=== PATIENT | male | born 1970 | race Caucasian/White ===

== ENCOUNTER 2016-12-05 00:21 | Emergency (ER) | payer BC, OTHER ==
[~2016-12-05] VITALS: Ht 172.7 cm; Wt 74.4 kg
--- NOTE | 2016-12-05 01:04 | NUR ---
PT MOVED FROM A LYING POSITION TO A SITTING POSITION AND PT STATED THAT THE PAIN CAME BACK. PT PUT HIS HAND ON HIS STERNUM
--- NOTE | 2016-12-05 01:06 | NUR ---
DR. WICK IS AT THE BEDSIDE EVALUATING THE PT.
[2016-12-05] MEDS ORDERED: IV SET PRIMARY 1 EA INFUS.SET MC ONE (01:23)
[2016-12-05] MEDS ORDERED: ASPIRIN 81 MG TAB.CHEW ONE (01:23)
[2016-12-05] MEDS ORDERED: IV NS 0.9% 1,000 ML ONE (01:23)
[2016-12-05] MEDS ORDERED: IV NS 0.9% 1,000 ML BAG IV ONE (01:30)
[2016-12-05] MEDS ORDERED: ASPIRIN 81 MG TAB.CHEW PO ONE (01:30)
[2016-12-05 01:33] LABS: BASOPHILS # (AUTO) 0.1 /CMM (0.0-0.2); BASOPHILS % (AUTO) 0.6 % (0.0-2.0); EOSINOPHILS # (AUTO) 0.2 /CMM (0.0-0.7); EOSINOPHILS % (AUTO) 1.8 % (0.0-6.0); HEMATOCRIT 38 % (39-51); HEMOGLOBIN 12.9 g/dL (13.5-17.5); LYMPHOCYTES # (AUTO) 3.6 /CMM (0.8-4.8); LYMPHOCYTES % (AUTO) 31.1 % (20.0-44.0); MEAN CORPUSCULAR HEMOGLOBIN 32 PG (26.0-33.0); MEAN CORPUSCULAR HGB CONC 34 g/dl (31.0-36.0); MEAN CORPUSCULAR VOLUME 95 fL (80-96); MONOCYTES # (AUTO) 0.9 /CMM (0.1-1.30); MONOCYTES % (AUTO) 7.9 % (2.0-12.0); NEUTROPHILS # (AUTO) 6.9 /CMM (1.8-8.9); NEUTROPHILS % (AUTO) 58.6 % (43.0-81.0); PLATELET COUNT (AUTO) 256 /CMM (150-450); RDW COEFFICIENT OF VARIATION 13.4 (11.5-15.0); RED BLOOD CELL COUNT(AUTO) 4.02 MIL/uL (4.5-6.0); WHITE BLOOD COUNT (AUTO) 11.7 K/uL (4.3-11.0)
[2016-12-05 01:35] LABS: CALCIUM, SERUM 8.7 mg/dL (8.5-10.1); CARBON DIOXIDE 30 mmol/L (21-32); CHLORIDE 104 mmol/L (98-107); CREATININE 1.1 mg/dL (0.6-1.3); GFR 72 mL/min (>60); GLUCOSE 101 mg/dL (74-106); POTASSIUM 3.7 mmol/L (3.5-5.1); SODIUM SERUM 142 mmol/L (136-145); UREA NITROGEN, BLOOD 19 mg/dL (7-18)
[2016-12-05 01:39] LABS: INR 0.96 (0.87-1.13); PROTHROMBIN TIME 10.2 SECS (9.5-12.7)
[2016-12-05 01:42] LABS: ALANINE AMINOTRANSFERASE 31 U/L (12-78); ALBUMIN 3.4 g/dL (3.4-5.0); ALKALINE PHOSPHATASE 80 U/L (46-116); ASPARTATE AMINOTRANSFERASE 17 U/L (15-37); BILIRUBIN,TOTAL 0.2 mg/dL (0.2-1.0); TROPONIN I < 0.017 ng/mL (0.00-0.056)
[2016-12-05] MEDS ORDERED: IV NS 0.9% 250 ML IV ONE (01:51)
[2016-12-05] MEDS ORDERED: IOHEXOL-350 100 ML VIAL IV ONE (01:51)
[2016-12-05] MEDS ORDERED: CT SWABBABLE VALVE TRANS SET 1 EA INFUS.SET MC ONE (01:51)
[2016-12-05] MEDS ORDERED: MORPHINE SULFATE INJ 2 MG/ML DISP.SYRIN ONE (03:13)
[2016-12-05] MEDS ORDERED: ONDANSETRON HCL/PF 4 MG/2 ML VIAL ONE (03:13)
[2016-12-05] MEDS ORDERED: MORPHINE SULFATE INJ 4 MG/ML DISP.SYRIN ONE (03:13)
--- NOTE | 2016-12-05 03:23 | NUR ---
PT REC'D MEDICATION FOR PAIN 02/22. PT C/O PAIN IN ABD.
[2016-12-05] MEDS ORDERED: MORPHINE SULFATE INJ 2 MG/ML DISP.SYRIN IV ONE (04:00)
[2016-12-05] MEDS ORDERED: ONDANSETRON HCL/PF 4 MG/2 ML VIAL IV ONE (04:00)
[2016-12-05] MEDS ORDERED: HYDROMORPHONE 1 MG/1 ML DISP.SYRIN ONE (04:03)
--- NOTE | 2016-12-05 04:15 | NUR ---
PT REC'D PAIN MEDICATION PRIOR TO LEAVING PER DR. WICK. IV removed. Catheter intact and site benign. Pressure and 4x4 applied to site. No bleeding noted. Patient discharged to home in stable condition. Written and verbal after care instructions given. Patient verbalizes understanding of instruction. PT'S IS DRIVING PT HOME. VSS
[2016-12-05 04:28] VITALS: BP 127/68
[2016-12-05] MEDS ORDERED: HYDROMORPHONE 1 MG/1 ML DISP.SYRIN IV ONE (04:30)
== END 2016-12-05 04:13 | disposition home or self-care (01) ==
LOC: ER 00:23
DX: R07.89 Other chest pain (principal); K85.90 Acute pancreatitis without necrosis or infection, unspecified; F17.200 Nicotine dependence, unspecified, uncomplicated; Z79.82 Long term (current) use of aspirin; Z87.442 Personal history of urinary calculi; Z98.890 Other specified postprocedural states
CPT/HCPCS: 36415; 71010; 71275; 80048; 80076; 83690; 84484; 85025; 85730; 93005; 96361; 96374; 96375; 99285; A4606; J1170; J2270 ×2; J2405; J7030; J7050; Q9967; Z7610

== ENCOUNTER → 2018-04-22 | Emergency (ER) | payer BC ==
[~2018-04-22] VITALS: Ht 170.2 cm; Wt 76.7 kg
[~2018-04-22] MED LIST: HYDROMORPHONE 1 MG/1 ML DISP.SYRIN ONE; HYDROMORPHONE INJ 2 MG/ML DISP.SYRIN IV ONE; IV NS 0.9% 1,000 ML BAG IV ONE; ONDANSETRON HCL/PF 4 MG/2 ML VIAL IVP ONE; ONDANSETRON HCL/PF 4 MG/2 ML VIAL ONE
--- NOTE | 2018-04-22 15:45 | NUR ---
BIB SELF, PATIENT COMPLAINT OF CHEST PAIN, ON ROOM AIR, AND TOLERATED WELL. ALERT AND ORIENTED X 4, VERBALLY RESPONSIVE. KEPT COMFORTABLE. WILL CONTINUE TO MONITOR ACCORDINGLY.
--- NOTE | 2018-04-22 15:50 | NUR ---
DR. SANCHEZ AT BEDSIDE FOR EVAL.
[2018-04-22 16:08] LABS: BASOPHILS # (AUTO) 0.1 /CMM (0.0-0.2); BASOPHILS % (AUTO) 0.8 % (0.0-2.0); EOSINOPHILS % (AUTO) 1.6 % (0.0-6.0); HEMATOCRIT 38 % (39-51); HEMOGLOBIN 12.9 g/dL (13.5-17.5); LYMPHOCYTES # (AUTO) 1.8 /CMM (0.8-4.8); LYMPHOCYTES % (AUTO) 19.5 % (20.0-44.0); MEAN CORPUSCULAR HGB CONC 34 g/dl (31.0-36.0); MEAN CORPUSCULAR VOLUME 97 fL (80-96); MONOCYTES # (AUTO) 0.7 /CMM (0.1-1.30); MONOCYTES % (AUTO) 7.7 % (2.0-12.0); NEUTROPHILS # (AUTO) 6.6 /CMM (1.8-8.9); NEUTROPHILS % (AUTO) 70.4 % (43.0-81.0); PLATELET COUNT (AUTO) 280 /CMM (150-450); RDW COEFFICIENT OF VARIATION 12.6 (11.5-15.0); RED BLOOD CELL COUNT(AUTO) 3.93 MIL/uL (4.5-6.0); WHITE BLOOD COUNT (AUTO) 9.4 K/uL (4.3-11.0)
[2018-04-22 16:18] LABS: CALCIUM, SERUM 8.9 mg/dL (8.5-10.1); CARBON DIOXIDE 33 mmol/L (21-32); CHLORIDE 105 mmol/L (98-107); CREATININE 1.2 mg/dL (0.6-1.3); GLUCOSE 98 mg/dL (74-106); POTASSIUM 3.9 mmol/L (3.5-5.1); SODIUM SERUM 142 mmol/L (136-145); UREA NITROGEN, BLOOD 13 mg/dL (7-18)
[2018-04-22 16:22] LABS: INR 0.97 (0.85-1.15)
[2018-04-22 16:26] LABS: TROPONIN I < 0.017 ng/mL (0.00-0.056)
[2018-04-22 17:21] VITALS: BP 130/80
== END | disposition home or self-care (01) ==
LOC: ER 16:04
DX: M79.601 Pain in right arm (principal); G54.0 Brachial plexus disorders; F17.200 Nicotine dependence, unspecified, uncomplicated; Z87.442 Personal history of urinary calculi; Z85.528 Personal history of other malignant neoplasm of kidney
CPT/HCPCS: 36415; 71045; 80048; 84484; 85025; 85730; 93005; 96374; 96375; 99285; A4606; J1170; J2405; Z7610

== ENCOUNTER 2018-11-14 02:15 | Emergency (ER) | payer BC, MEDICAID ==
[~2018-11-14] VITALS: Ht 170.2 cm; Wt 70.8 kg
--- NOTE | 2018-11-14 02:40 | NUR ---
PT BIBSELF C/C ABD PAIN, LT FLANK PAIN, +N/-V, DYSURIA, -HEMATURIA. NAD NOTED. PT RESP EVEN AND UNLABORED. PT ON MONITOR IN BED 9. WILL CONTINUE TO MONITOR.
--- NOTE | 2018-11-14 02:50 | NUR ---
URINE COLLECTED AND SENT TO LAB
--- NOTE | 2018-11-14 03:16 | NUR ---
BLOOD DRAWN AND GIVEN TO LAB
[2018-11-14] MEDS ORDERED: MORPHINE SULFATE INJ 4 MG/ML DISP.SYRIN ONE ×2 (03:17→04:39)
[2018-11-14 03:24] LABS: BASOPHILS # (AUTO) 0.1 /CMM (0.0-0.2); BASOPHILS % (AUTO) 0.9 % (0.0-2.0); EOSINOPHILS % (AUTO) 1.1 % (0.0-6.0); HEMATOCRIT 38 % (39-51); HEMOGLOBIN 12.8 g/dL (13.5-17.5); LYMPHOCYTES # (AUTO) 2.7 /CMM (0.8-4.8); LYMPHOCYTES % (AUTO) 20.9 % (20.0-44.0); MEAN CORPUSCULAR HGB CONC 34 g/dl (31.0-36.0); MEAN CORPUSCULAR VOLUME 96 fL (80-96); MONOCYTES % (AUTO) 7.8 % (2.0-12.0); NEUTROPHILS # (AUTO) 8.8 /CMM (1.8-8.9); NEUTROPHILS % (AUTO) 69.3 % (43.0-81.0); PLATELET COUNT (AUTO) 237 /CMM (150-450); RED BLOOD CELL COUNT(AUTO) 3.93 MIL/uL (4.5-6.0); WHITE BLOOD COUNT (AUTO) 12.8 K/uL (4.3-11.0)
[2018-11-14] MEDS: MORPHINE SULFATE INJ 2 MG/ML DISP.SYRIN IV ONE ×2 (03:25→04:41)
[2018-11-14] MEDS: IV NS 0.9% 1,000 ML BAG IV ONE (03:25)
[2018-11-14 03:26] VITALS: BP 100/71
[2018-11-14 03:32] LABS: APPEARANCE,URINE CLEAR (CLEAR); BILIRUBIN,URINE NEGATIVE (NEGATIVE); BLOOD, URINE 2+ Ery/uL (NEGATIVE); COLOR,URINE YELLOW (YELLOW); KETONES,URINE NEGATIVE (NEGATIVE); LEUKOCYTE ESTERASE ,URINE NEGATIVE (NEGATIVE); NITRITE, URINE NEGATIVE (NEGATIVE); PH,URINE 5.5 (5.0-8.0); PROTEIN,URINE NEGATIVE (NEGATIVE); UGLUCOSE NEGATIVE (NEGATIVE); UROBILINOGEN,URINE 0.2 EU/dL (0.2)
[2018-11-14 03:32] LABS: CALCIUM, SERUM 8.8 mg/dL (8.5-10.1); CREATININE 1.1 mg/dL (0.6-1.3); POTASSIUM 4.1 mmol/L (3.5-5.1)
[2018-11-14 03:37] LABS: ALBUMIN 3.5 g/dL (3.4-5.0); BILIRUBIN,TOTAL 0.2 mg/dL (0.2-1.0); TOTAL PROTEIN, SERUM 7.4 g/dL (6.4-8.2)
[2018-11-14 03:42] LABS: BACTERIA,URINE None seen /HPF (None Seen); RBC,URINE 21-50 /HPF (0-2); SQUAMOUS EPITHELIAL CELL,UR Few /HPF (None Seen)
[2018-11-14 03:43] LABS: CALCIUM OXALATE CRYSTALS,UR Few /HPF (None Seen); MUCUS,URINE Moderate /LPF (None Seen)
--- NOTE | 2018-11-14 05:02 | NUR ---
IV removed. Catheter intact and site benign. Pressure and 4x4 applied to site. No bleeding noted.Patient discharged to home in stable condition. Written and verbal after care instructions given. Patient verbalizes understanding of instruction. PT AMBULATORY WITH STEADY GAIT.
== END 2018-11-14 05:04 | disposition home or self-care (01) ==
LOC: ER 02:17
DX: R10.9 Unspecified abdominal pain (principal); F17.200 Nicotine dependence, unspecified, uncomplicated; R42 Dizziness and giddiness; Z85.79 Personal history of other malignant neoplasms of lymphoid, hematopoietic and related tissues; Z87.442 Personal history of urinary calculi; Z90.5 Acquired absence of kidney; Z98.890 Other specified postprocedural states
CPT/HCPCS: 36415; 74176; 80048; 80076; 81001; 83690; 85025; 87086; 96361; 96374; 96376; 99284; J2270 ×2; J7030; 81000-TC

== ENCOUNTER 2019-01-16 11:56 | Emergency (ER) | payer BC, MEDICAID ==
[~2019-01-16] VITALS: Ht 170.2 cm; Wt 72.6 kg
--- NOTE | 2019-01-16 12:05 | NUR ---
CAME IN FOR STOMACH PAIN X 3 DAYS; HX OF CA KIDNEY & SPINE. TO ER BED 11, HOOKED TO MONITOR, CHANGED TO GOWN, PROVIDED W WARM BLANKET, AWAITING MD RUBIO
--- NOTE | 2019-01-16 12:29 | NUR ---
DR ADAIR AT BEDSIDE
[2019-01-16] MEDS ORDERED: LIDOCAINE VISCOUS 2% UD 15 ML UDC ONE (12:43)
[2019-01-16] MEDS ORDERED: MAG HYDROX/AL HYDROX/SIMETH 30 ML UDC ONE (12:43)
[2019-01-16] MEDS ORDERED: FAMOTIDINE/PF INJ 20 MG/2 ML VIAL IV ONE ×2 (12:43→13:00)
[2019-01-16] MEDS ORDERED: ONDANSETRON HCL/PF 4 MG/2 ML VIAL ONE ×2 (12:43→14:00)
[2019-01-16 12:44] LABS: BASOPHILS # (AUTO) 0.1 /CMM (0.0-0.2); BASOPHILS % (AUTO) 0.8 % (0.0-2.0); EOSINOPHILS % (AUTO) 4.2 % (0.0-6.0); HEMATOCRIT 39 % (39-51); HEMOGLOBIN 13.1 g/dL (13.5-17.5); LYMPHOCYTES # (AUTO) 2.4 /CMM (0.8-4.8); LYMPHOCYTES % (AUTO) 31.1 % (20.0-44.0); MEAN CORPUSCULAR HGB CONC 33 g/dl (31.0-36.0); MEAN CORPUSCULAR VOLUME 98 fL (80-96); MONOCYTES # (AUTO) 0.6 /CMM (0.1-1.30); MONOCYTES % (AUTO) 8.5 % (2.0-12.0); NEUTROPHILS # (AUTO) 4.2 /CMM (1.8-8.9); NEUTROPHILS % (AUTO) 55.4 % (43.0-81.0); PLATELET COUNT (AUTO) 253 /CMM (150-450); RED BLOOD CELL COUNT(AUTO) 4.01 MIL/uL (4.5-6.0); WHITE BLOOD COUNT (AUTO) 7.6 K/uL (4.3-11.0)
[2019-01-16 12:45] LABS: APPEARANCE,URINE Clear (CLEAR); BILIRUBIN,URINE Negative (NEGATIVE); BLOOD, URINE Moderate Ery/uL (NEGATIVE); COLOR,URINE Yellow (YELLOW); KETONES,URINE Negative (NEGATIVE); LEUKOCYTE ESTERASE ,URINE Negative (NEGATIVE); NITRITE, URINE Negative (NEGATIVE); PROTEIN,URINE Negative (NEGATIVE); UGLUCOSE Negative (NEGATIVE); UROBILINOGEN,URINE 0.2 EU/dL (0.2)
[2019-01-16 12:50] LABS: BACTERIA,URINE Rare /HPF (None Seen); SQUAMOUS EPITHELIAL CELL,UR Rare /HPF (None Seen)
[2019-01-16 12:51] LABS: CALCIUM, SERUM 8.8 mg/dL (8.5-10.1); CREATININE 1.1 mg/dL (0.6-1.3); POTASSIUM 4.3 mmol/L (3.5-5.1)
[2019-01-16] MEDS ORDERED: IV NS 0.9% 250 ML IV ONE (12:52)
[2019-01-16] MEDS ORDERED: IOHEXOL-300 100 ML VIAL IV ONE (12:52)
[2019-01-16] MEDS ORDERED: CT SWABBABLE VALVE TRANS SET 1 EA INFUS.SET MC ONE (12:52)
[2019-01-16 12:57] LABS: ALBUMIN 3.3 g/dL (3.4-5.0); BILIRUBIN,DIRECT 0.1 mg/dL (0.0-0.2); BILIRUBIN,TOTAL 0.4 mg/dL (0.2-1.0); TOTAL PROTEIN, SERUM 7.2 g/dL (6.4-8.2)
[2019-01-16] MEDS ORDERED: MAG HYDROX/AL HYDROX/SIMETH 30 ML UDC PO ONE (13:00)
[2019-01-16] MEDS ORDERED: ONDANSETRON HCL/PF 4 MG/2 ML VIAL IVP ONE (13:00)
[2019-01-16] MEDS ORDERED: IV NS 0.9% 1,000 ML BAG IV ONE (13:00)
[2019-01-16] MEDS ORDERED: LIDOCAINE VISCOUS 2% UD 15 ML UDC MM ONE (13:00)
[2019-01-16] MEDS ORDERED: MORPHINE SULFATE INJ 4 MG/ML DISP.SYRIN ONE (14:00)
[2019-01-16] MEDS ORDERED: ONDANSETRON HCL/PF - ER 4 MG/2 ML VIAL IV ONE (14:00)
[2019-01-16] MEDS ORDERED: SUCRALFATE 1 G/10 ML UDC ONE (14:00)
[2019-01-16] MEDS ORDERED: MORPHINE SULFATE INJ 2 MG/ML DISP.SYRIN IV ONE (14:00)
[2019-01-16] MEDS ORDERED: SUCRALFATE 1 G/10 ML UDC PO ONE (14:00)
--- NOTE | 2019-01-16 14:35 | NUR ---
IV removed. Catheter intact and site benign. Pressure and 4x4 applied to site. No bleeding noted.Patient discharged to home in stable condition. Written and verbal after care instructions given. Patient verbalizes understanding of instruction.
[2019-01-16 14:44] VITALS: BP 109/54
== END 2019-01-16 14:45 | disposition home or self-care (01) ==
LOC: ER 11:56
DX: R10.12 Left upper quadrant pain (principal); R11.2 Nausea with vomiting, unspecified; F17.200 Nicotine dependence, unspecified, uncomplicated; Z85.79 Personal history of other malignant neoplasms of lymphoid, hematopoietic and related tissues; Z85.528 Personal history of other malignant neoplasm of kidney; Z87.442 Personal history of urinary calculi; Z90.5 Acquired absence of kidney; Z98.890 Other specified postprocedural states
CPT/HCPCS: 36415; 74176; 80048; 80076; 81001; 83690; 85025; 96361; 96374; 96375; 96376; 99284; J2270; J2405 ×3; J3490; J7030; J7050; Q9967; 81000-TC

== ENCOUNTER 2019-04-24 01:06 | Emergency (ER) | payer BC, MEDICAID ==
[~2019-04-24] VITALS: Ht 170.2 cm; Wt 69.9 kg
[2019-04-24 01:31] VITALS: BP 114/88
--- NOTE | 2019-04-24 01:31 | NUR ---
BIBS C/O: CHRONIC R ARM PAIN TO ER BED 2 AWAITING MED EVAL
[2019-04-24] MEDS ORDERED: HYDROMORPHONE INJ 2 MG/ML DISP.SYRIN ONE (01:46)
[2019-04-24] MEDS ORDERED: ONDANSETRON 4 MG TAB.RAPDIS ONE (01:46)
[2019-04-24] MEDS ORDERED: HYDROMORPHONE INJ 2 MG/ML DISP.SYRIN IM ONE (02:00)
[2019-04-24] MEDS ORDERED: ONDANSETRON 4 MG TAB.RAPDIS SL ONE (02:00)
== END 2019-04-24 01:55 | disposition home or self-care (01) ==
LOC: ER 01:06
DX: G89.29 Other chronic pain (principal); M25.511 Pain in right shoulder; F17.200 Nicotine dependence, unspecified, uncomplicated; Z87.442 Personal history of urinary calculi; Z90.5 Acquired absence of kidney; Z98.890 Other specified postprocedural states; Z85.528 Personal history of other malignant neoplasm of kidney; Z85.848 Personal history of malignant neoplasm of other parts of nervous tissue
CPT/HCPCS: 96372; 99283; J1170; Q0162

== ENCOUNTER 2019-05-11 00:01 | Emergency (ER) | payer BC, MEDICAID ==
[~2019-05-11] VITALS: Ht 170.2 cm; Wt 69.9 kg
[2019-05-11 00:06] VITALS: BP 109/76
[2019-05-11] MEDS ORDERED: HYDROMORPHONE INJ 2 MG/ML DISP.SYRIN ONE (00:40)
[2019-05-11] MEDS ORDERED: HYDROMORPHONE INJ 0.5 MG/0.5 ML SYRINGE IM ONE (01:00)
== END 2019-05-11 00:50 | disposition home or self-care (01) ==
LOC: ER 00:04
DX: G89.29 Other chronic pain (principal); M54.2 Cervicalgia; F17.200 Nicotine dependence, unspecified, uncomplicated; Z98.890 Other specified postprocedural states; Z90.5 Acquired absence of kidney; Z85.72 Personal history of non-Hodgkin lymphomas; Z85.53 Personal history of malignant neoplasm of renal pelvis
CPT/HCPCS: 96372; 99283; J1170

== ENCOUNTER 2019-07-19 02:51 | Emergency (ER) | payer BC, MEDICAID ==
[~2019-07-19] VITALS: Ht 170.2 cm; Wt 74.8 kg
--- NOTE | 2019-07-19 03:18 | NUR ---
R SIDED SHARP CHEST PAIN STARTED YESTERDAY RADIATING TO R ARM, -NV, -DIAPHORESIS, -SOB. PT AAOX4, VSS, BREATHING EVEN AND UNLABORED ON ROOM AIR W/ NAD NOTED. PT CONNECTED TO THE BULK RECEIVER AND POX.
[2019-07-19] MEDS ORDERED: ASPIRIN 325 MG TABLET ONE (03:43)
--- NOTE | 2019-07-19 03:45 | NUR ---
DR RHODES AT BEDSIDE
[2019-07-19] MEDS ORDERED: MORPHINE SULFATE INJ 4 MG/ML DISP.SYRIN ONE ×2 (03:59→05:27)
[2019-07-19] MEDS ORDERED: MORPHINE SULFATE INJ 2 MG/ML DISP.SYRIN IV ONE ×2 (04:00→05:30)
[2019-07-19] MEDS ORDERED: ASPIRIN 325 MG TABLET PO ONE (04:00)
--- NOTE | 2019-07-19 04:31 | NUR ---
ULTRASOUND IN POGRESS IN PROGRESS
--- NOTE | 2019-07-19 06:28 | NUR ---
Patient discharged to home in stable condition. Written and verbal after care instructions given. Patient verbalizes understanding of instruction.
[2019-07-19 06:30] VITALS: BP 112/67
== END 2019-07-19 06:30 | disposition home or self-care (01) ==
LOC: ER 02:53
DX: M79.601 Pain in right arm (principal); R07.89 Other chest pain; F17.200 Nicotine dependence, unspecified, uncomplicated; Z87.442 Personal history of urinary calculi; Z98.890 Other specified postprocedural states
CPT/HCPCS: 71045; 73060; 73090; 93971; 96374; 96376; 99284; J2270 ×2

== ENCOUNTER 2020-02-08 00:23 | Emergency (ER) | payer BC, MEDICAID ==
[~2020-02-08] VITALS: Ht 170.2 cm; Wt 77.1 kg
--- NOTE | 2020-02-08 00:30 | NUR ---
PT CAME TO THE ED C/O R BUTTOCK PAIN RADIATING TO RLE. PT STATES HE HAS RENAL CANCER AND TOOK GABAPENTIN AND PERCOCET WITH NO RELIEF AT 1999. PT AAOX4, VSS, RESPIRATIONS EVNE AND UNLABORED ON RA W/ NAD NOTED. PT CONNECTED TO THE MONITOR AND POX
[2020-02-08] MEDS ORDERED: MORPHINE SULFATE INJ 4 MG/ML DISP.SYRIN ONE (00:56)
[2020-02-08] MEDS ORDERED: ONDANSETRON 4 MG TAB.RAPDIS ONE (00:57)
[2020-02-08] MEDS ORDERED: ONDANSETRON 4 MG TAB.RAPDIS SL ONE (01:00)
[2020-02-08] MEDS ORDERED: MORPHINE SULFATE INJ 2 MG/ML DISP.SYRIN IV ONE (01:00)
--- NOTE | 2020-02-08 01:31 | NUR ---
PT GOT VERY UPSET W/ THE TREATMENT PROVIDED. PT DEMANDED TO HAVE AN IV LINE INSERTED. MADE AWARE
--- NOTE | 2020-02-08 01:35 | NUR ---
Patient eloped from facility. ER MD notified.
[2020-02-08 01:39] VITALS: BP 103/71
== END 2020-02-08 01:41 | disposition left against medical advice (07) ==
LOC: ER 00:26
DX: G89.29 Other chronic pain (principal); Z87.442 Personal history of urinary calculi; Z85.528 Personal history of other malignant neoplasm of kidney; Z98.890 Other specified postprocedural states; Z90.5 Acquired absence of kidney
CPT/HCPCS: 96374; 99283; J2270; Q0162

== ENCOUNTER 2020-05-12 13:17 | Inpatient (IN) | payer BC, OTHER ==
[2020-05-12] VITALS (22 sets, daily range): BP systolic 102–122; BP diastolic 42–62
[~2020-05-12] VITALS: Ht 170.2 cm; Wt 59.9 kg
--- NOTE | 2020-05-12 13:54 | NUR ---
received pt in bed awake confused, pt does not remember what hapened stated had a nose bleed episode, poor history provider, sbp low 80s runing ns wide open hr 120s o2 sat ra 88 placed on 4l nc sat 94 rr 17, temp 102.8 moved to isolation room 8, at bedside assessing pt awaiting for orders. Addendum: 05/12/20 at 1610 by BILLY pt is not confused;however, is lethargic pt ao2
[2020-05-12] MEDS ORDERED: MEROPENEM 1,000 MG in IV NS 0.9% 100 ML IV ONE (14:30)
[2020-05-12] MEDS ORDERED: IV NS 0.9% 1,000 ML BAG IV ONE (14:30)
[2020-05-12] MEDS ORDERED: NOREPINEPHRINE 8 MG in IV NS 0.9% 242 ML IV PRN (14:30)
[2020-05-12] MEDS ORDERED: ACETAMINOPHEN 650 MG/SUPP.RECT RC ONE ×2 (14:30→14:58)
[2020-05-12] MEDS ORDERED: VANCOMYCIN 1 GM in IV D5W 250 ML IV ONE (14:30)
[2020-05-12 14:41] LABS: BASOPHILS # (AUTO) 0.1 /CMM (0.0-0.2); BASOPHILS % (AUTO) 1.5 % (0.0-2.0); EOSINOPHILS % (AUTO) 2.2 % (0.0-6.0); LYMPHOCYTES # (AUTO) 1.7 /CMM (0.8-4.8); LYMPHOCYTES % (AUTO) 19.7 % (20.0-44.0); MEAN CORPUSCULAR HGB CONC 33 g/dl (31.0-36.0); MEAN CORPUSCULAR VOLUME 89 fL (80-96); MONOCYTES # (AUTO) 0.2 /CMM (0.1-1.30); MONOCYTES % (AUTO) 2.3 % (2.0-12.0); NEUTROPHILS # (AUTO) 6.6 /CMM (1.8-8.9); NEUTROPHILS % (AUTO) 74.3 % (43.0-81.0); WHITE BLOOD COUNT (AUTO) 8.8 K/uL (4.3-11.0)
[2020-05-12] MEDS ORDERED: SENN-261 PO (14:42)
[2020-05-12] MEDS ORDERED: GABA250S2 PO (14:42)
[2020-05-12] MEDS ORDERED: POLY17PO4 PO (14:42)
[2020-05-12] MEDS ORDERED: MYCO500T5 PO (14:42)
[2020-05-12] MEDS ORDERED: APIX5TAB PO (14:42)
[2020-05-12] MEDS ORDERED: HYDR8TAB2 PO (14:42)
[2020-05-12] MEDS ORDERED: CALC-1143 PO (14:42)
[2020-05-12] MEDS ORDERED: ASCO500T20 PO (14:42)
[2020-05-12] MEDS ORDERED: FENT1PAT6 TP (14:42)
[2020-05-12] MEDS ORDERED: ALPR0.5T8 PO (14:42)
[2020-05-12] MEDS ORDERED: [UNRECOGNIZED DRUG - CODE] IV (14:46)
[2020-05-12 14:49] LABS: CALCIUM, SERUM 9.3 mg/dL (8.5-10.1); CREATININE 1.6 mg/dL (0.6-1.3); POTASSIUM 3.9 mmol/L (3.5-5.1)
[2020-05-12 14:50] LABS: HEMATOCRIT 17 % (39-51); HEMOGLOBIN 5.6 g/dL (13.5-17.5); PLATELET COUNT (AUTO) 42 /CMM (150-450)
[2020-05-12 14:52] LABS: ABG BASE EXCESS -3.4 mmol/L; ABG OXYGEN SATURATION 97.3 % (92.0-98.5); ABG PH 7.399 (7.350-7.450); ABG PO2 105.7 mmHg (75.0-100.0); AaDO2 103.2 mmHg; COHb 1.1 % (0.5-1.5); MetHb 0.4 % (0.0-1.5); O2Hb 95.8 % (94.0-97.0); SITE, ABG Left Radial; VENT MODE, BG 4L NASAL CANULA
[2020-05-12 14:55] LABS: ALBUMIN 1.9 g/dL (3.4-5.0); TOTAL PROTEIN, SERUM 4.9 g/dL (6.4-8.2)
[2020-05-12] MEDS ORDERED: HYDROCORTISONE SOD SUCCINATE 100 MG/2 ML VIAL ONE (14:58)
[2020-05-12] MEDS ORDERED: HYDROCORTISONE SOD SUCCINATE 100 MG/2 ML VIAL IV ONE (15:00)
--- NOTE | 2020-05-12 15:05 | NUR ---
orders received for levophed started at 0.1mcg sbp 80s hr 110s o2 sat 95% 4l nc no distress noted 2 l ns wide open running establised 2nd iv line LAC 18G, pt also have a VALENTINO picc line from home. pt condition stable at this time.
[2020-05-12 15:22] LABS: BILIRUBIN,URINE Negative (NEGATIVE); BLOOD, URINE Small Ery/uL (NEGATIVE); COLOR,URINE Yellow (YELLOW); LEUKOCYTE ESTERASE ,URINE Negative (NEGATIVE); NITRITE, URINE Negative (NEGATIVE); PROTEIN,URINE 30 mg/dl (NEGATIVE); UGLUCOSE Negative (NEGATIVE); UROBILINOGEN,URINE 0.2 EU/dL (0.2)
[2020-05-12 15:32] LABS: BILIRUBIN,TOTAL 0.4 mg/dL (0.2-1.0)
[2020-05-12 15:33] LABS: BILIRUBIN,DIRECT 0.2 mg/dL (0.0-0.2)
[2020-05-12 15:33] LABS: BACTERIA,URINE Rare /HPF (None Seen); RBC,URINE 0-2 /HPF (0-2); SQUAMOUS EPITHELIAL CELL,UR Rare /HPF (None Seen); WBC,URINE 0-2 /HPF (0-3)
--- NOTE | 2020-05-12 15:38 | NUR ---
covid swab test collected and sent to lab
--- NOTE | 2020-05-12 16:08 | NUR ---
pt assigned to room 263
--- NOTE | 2020-05-12 16:09 | NUR ---
2l ns infused sbp 110s improved levo running 0.2 emergency room technician at bedside blood consent obtained awaiting for blood be ready for transfuseion. pt condition stable at this time temp down to 99.9 after cooling measures and tylenol administration
[2020-05-12] MEDS ORDERED: ASPIRIN 81 MG TAB.CHEW ONE (16:59)
[2020-05-12] MEDS ORDERED: ASPIRIN 81 MG TAB.CHEW PO ONE (17:00)
--- NOTE | 2020-05-12 17:10 | NUR ---
call blood bank, still working on blood will call er once available.
--- NOTE | 2020-05-12 17:22 | NUR ---
report given to LEAD SOFTWARE ENGINEER Keeley for cont of care all pt needs meet no distress noted during time, pt condition is serious but stable called blood bank, blood not ready will start in ICU once blood ready. pt transfered to icu 263
--- NOTE | 2020-05-12 18:00 | NUR ---
RN NOTES GOT REPORT FROM [facility] for cont of care
[2020-05-12] MEDS ORDERED: Z GUARD REMEDY 2 OZ OINT TP PRN (18:30)
[2020-05-12] MEDS ORDERED: POLYETHYLENE GLYCOL 3350 17 GM POWD.PACK PO PRN (18:30)
[2020-05-12] MEDS ORDERED: ONDANSETRON HCL/PF 4 MG/2 ML VIAL IVP PRN (18:30)
[2020-05-12] MEDS ORDERED: HYDROMORPHONE INJ 2 MG/ML DISP.SYRIN IV PRN (18:30)
[2020-05-12] MEDS ORDERED: ACETAMINOPHEN 325 MG TABLET PO PRN (18:30)
[2020-05-12] MEDS ORDERED: MEROPENEM 500 MG in IV NS 0.9% 50 ML IV SCH (19:00)
[2020-05-12] MEDS: IV NS 0.9% 1,000 ML IV PRN (19:20)
--- NOTE | 2020-05-12 19:25 | NUR ---
PIPE FITTINGS MOLDER NOTES RECEIVED PT A/OX 2-3 IN BED SLEEPING COMFORTABLY. PATIENT IN NO S/SX OF ACUTE DISTRESS AT THIS TIME. NO SOB NOTED. PATIENT'S BREATHING IS EVEN AND UNLABORED. PATIENT IS ON 4 L OF OXYGEN VIA NC; TOLERATING WELL; 97 O2 SAT AT TIME OF RECEIVED. PATIENT ON TELE MONITORING READING SINUS RHYTHM HR IS @79. PATIENT ON REGULAR DIET. NOTED IV SITE ON R UA PICC LINE AND L AC # 18;PATENT, INTACT AND FLUSHING WELL NO S/S OF INFECTION OR INFILTRATION. WITH IV FLUID RUNNING ORDERED. PATIENT ALSO HAS RUNNING LEVOPHED @0.1MCG/KG/MIN AT THE TIME OF RECEIVED. WITH ORTIZ CATH IN PLACE, WITH MODERATE YELLOW COLORED URINE OUTPUT. SAFETY MEASURES HAVE BEEN PROVIDED AND IMPLEMENTED. PATIENT BED ALARM IS ON. HEAD OF BED ELEVATED. BED IS LOCKED, IN LOWEST POSITION AND SIDE RAILS UP. CALL LIGHT WITHIN REACH OF THE PATIENT. ISOLATION PRECAUTIONS IN PLACE. WILL CONTINUE TO MONITOR AND REASSESS FOR ANY CHANGES AND WILL CARRY OUT ANY ONGOING AND ACTIVE MD ORDER.
--- NOTE | 2020-05-12 19:57 | NUR ---
RN NOTES PT IS RESTING. ALERT AND ORIENTED X3. WAITING FOR BLOOD. NO SOB OR DISTRESS NOTED. PT IS ON O2 ON 4 L. ORTIZ.CATH DRAINING BY GRAVITY. LAC #18 IS RUNNING.NO INFILTRATION OR SIGN OF INFECTION PICC LINE LEVO IS RUNNING O.1 MCG. SAFETY MEASUREMENTS ARE IMPLEMENTED BY PROTOCOL. BED IS IN THE LOWEST POSITION. SIDE RAIL IS UP X2. WILL ENDORSE TO NIGHT NURSE FOR LEVON
[2020-05-12 20:56] LABS: BAND % (MANUAL) 34 % (0.0-5.0); LYMPHOCYTES % (MANUAL) 30 % (16-48); METAMYELOCYTES % 2 % (0-0); MONOCYTES % (MANUAL) 6 % (0-11.0); MYELOCYTES % 2 % (0-0); NEUTROPHILS % (MANUAL) 26 (42-76)
--- NOTE | 2020-05-12 20:58 | NUR ---
SURVEILLANCE SENSOR OPERATOR NOTES STARTED 1ST BAG OF PLATELET ORDERED AND PER PROTOCOL. INITIAL VITAL SIGNS TAKEN; WNL. WILL CONTINUE TO MONITOR FOR ANY BLOOD TRANSFUSION REACTION AND ADDRESS NEEDED PERSONAL INJURY ATTORNEY MADE AWARE. Addendum: 05/12/20 at 2256 by SHELTON JORDAN RN ENDED INFUSION AT 2227, NO TRANSFUSION REACTION NOTED. VITAL SIGNS WNL. GERA LUIS MADE AWARE. WILL CONTINUE TO MONITOR AND REASSESS FOR ANY TRANSFUSION REACTION POST PROCEDURE.
[2020-05-12] MEDS: HYDROCORTISONE SOD SUCCINATE 100 MG/2 ML VIAL IV SCH (21:48)
[2020-05-12] MEDS: MYCOPHENOLATE MOFETIL 250 MG CAPSULE PO SCH (21:49)
[2020-05-12] MEDS: GABAPENTIN 300 MG CAPSULE PO SCH (21:49)
--- NOTE | 2020-05-12 22:00 | NUR ---
RN NOTES NO CHANGE IN PATIENT CONDITION AT THIS TIME PATIENT VITALS STABLE, NO SIGNS OF ACUTE RESPIRATORY DISTRESS. PUBLIC HEALTH ASSISTANT MADE AWARE. WILL CONTINUE TO MONITOR AND REASSESS FOR ANY CHANGES THROUGHOUT THE SHIFT.
--- NOTE | 2020-05-12 22:48 | NUR ---
SCHOOL BUS DISPATCHER NOTES STARTED 2ND BAG OF PLATELET ORDERED AND ADMINISTERED PER PROTOCOL. VITAL SIGNS TAKEN; WNL. WILL CONTINUE TO MONITOR FOR ANY BLOOD TRANSFUSION REACTION AND ADDRESS NEEDED NON LINEAR EDITOR MADE AWARE. Addendum: 05/12/20 at 2347 by SHELTON JORDAN RN ENDED INFUSION AT 2345, NO TRANSFUSION REACTION NOTED. VITAL SIGNS WNL. NON LINEAR EDITOR MADE AWARE. WILL CONTINUE TO MONITOR AND REASSESS FOR ANY TRANSFUSION REACTION POST PROCEDURE.
[2020-05-13] VITALS (105 sets, daily range): BP systolic 74–127; BP diastolic 40–88
[2020-05-13] MEDS: MEROPENEM 1 G in IV NS 0.9% 100 ML IV SCH ×2 (00:22→12:09)
--- NOTE | 2020-05-13 00:35 | NUR ---
MEDICAL RECEPTION SPECIALIST NOTES STARTED 1ST BAG OF PRBC ORDERED AND ADMINISTERED PER PROTOCOL. VITAL SIGNS TAKEN AND RECORDED. WILL CONTINUE TO MONITOR FOR ANY BLOOD TRANSFUSION REACTION AND ADDRESS NEEDED. GERA LUIS MADE AWARE. Addendum: 05/13/20 at 0300 by SHELTON JORDAN RN ENDED INFUSION AT 0259, NO TRANSFUSION REACTION NOTED. VITAL SIGNS WNL. GERA LUIS MADE AWARE. WILL CONTINUE TO MONITOR AND REASSESS FOR ANY TRANSFUSION REACTION POST PROCEDURE.
--- NOTE | 2020-05-13 02:00 | NUR ---
MAKER UP FOLDING NOTES NO CHANGE IN PATIENT CONDITION AT THIS TIME PATIENT VITALS STABLE, NO SIGNS OF ACUTE RESPIRATORY DISTRESS. PRIMARY TEACHER MADE AWARE. WILL CONTINUE TO MONITOR AND REASSESS FOR ANY CHANGES THROUGHOUT THE SHIFT.
--- NOTE | 2020-05-13 03:17 | NUR ---
STRIKE ON MACHINE OPERATOR NOTES STARTED 2ND BAG OF PRBC ORDERED AND ADMINISTERED PER PROTOCOL. VITAL SIGNS TAKEN; WNL. WILL CONTINUE TO MONITOR FOR ANY BLOOD TRANSFUSION REACTION AND ADDRESS NEEDED SUPERVISOR HARVESTING MADE AWARE. Addendum: 05/13/20 at 0522 by SHELTON JORDAN RN ENDED BLOOD TRANSFUSION AT 0519, NO TRANSFUSION REACTION NOTED. VITAL SIGNS WNL. SUPERVISOR HARVESTING MADE AWARE. WILL CONTINUE TO MONITOR AND REASSESS FOR ANY TRANSFUSION REACTION POST PROCEDURE.
[2020-05-13] MEDS ORDERED: VANCOMYCIN 1 GM in IV D5W 250 ML IV SCH (04:00)
--- NOTE | 2020-05-13 04:05 | NUR ---
CELEBRITY MANAGER NOTES PATIENT HAS DUE MEDICATION OF VANCOMYCIN 1GM IN IV D5W @250MLS/HR. ADMINSTRATION WILL BE DELAYED THERE'S AN ONGOING BLOOD TRANSFUSION FOR THE PT. WILL ADMINISTER ONCE BLOOD TRANSFUSION HAS BEEN COMPLETED. ROLLING MILL OPERATOR HELPER MADE AWARE.
[2020-05-13] MEDS: HYDROCORTISONE SOD SUCCINATE 100 MG/2 ML VIAL IV SCH ×3 (04:32→21:46)
[2020-05-13] MEDS: GABAPENTIN 300 MG CAPSULE PO SCH ×3 (04:33→21:46)
--- NOTE | 2020-05-13 07:01 | NUR ---
PSYCHOMETRIC EXAMINER CLOSING NOTES PATIENT REMAINS IN ROOM IN NO SIGNS OF RESPIRATORY DISTRESS. PATIENT SATURATING 100% OF 02. VITAL SIGNS WNL. IV LINE MAINTAINED, INTACT, PATENT AND FLUSHING, NO SITE REDNESS OR INFILTRATION. SAFETY PRECAUTIONS IN PLACE AND COMFORT MEASURES RENDERED. BED IN LOWEST POSITION, CALL LIGHT WITHIN REACH, BREAKS ON, SIDE RAILS UP. ALL NEEDS ATTENDED, MEDICATIONS GIVEN SCHEDULED AND ORDERED ; SHIFT ASSESSMENT/BEDBATH/SKIN CARE DONE. PATIENT KEPT CLEAN AND DRY. WILL ENDORSE TO INCOMING SHIFT FOR LEVON WITH ALL PERTINENT INFO REGARDING PATIENT STATUS.
[2020-05-13 07:10] LABS: BASOPHILS # (AUTO) 0.1 /CMM (0.0-0.2); BASOPHILS % (AUTO) 1.5 % (0.0-2.0); EOSINOPHILS % (AUTO) 0.9 % (0.0-6.0); HEMATOCRIT 23 % (39-51); HEMOGLOBIN 7.5 g/dL (13.5-17.5); LYMPHOCYTES # (AUTO) 0.8 /CMM (0.8-4.8); LYMPHOCYTES % (AUTO) 11.1 % (20.0-44.0); MEAN CORPUSCULAR HGB CONC 33 g/dl (31.0-36.0); MEAN CORPUSCULAR VOLUME 89 fL (80-96); MONOCYTES # (AUTO) 0.2 /CMM (0.1-1.30); MONOCYTES % (AUTO) 2.4 % (2.0-12.0); NEUTROPHILS # (AUTO) 6.2 /CMM (1.8-8.9); NEUTROPHILS % (AUTO) 84.1 % (43.0-81.0); PLATELET COUNT (AUTO) 82 /CMM (150-450); RED BLOOD CELL COUNT(AUTO) 2.54 MIL/uL (4.5-6.0); WHITE BLOOD COUNT (AUTO) 7.3 K/uL (4.3-11.0)
[2020-05-13 07:18] LABS: CALCIUM, SERUM 8.4 mg/dL (8.5-10.1); CREATININE 1.1 mg/dL (0.6-1.3); PHOSPHORUS 5.9 mg/dL (2.5-4.9); POTASSIUM 3.8 mmol/L (3.5-5.1)
--- NOTE | 2020-05-13 08:00 | NUR ---
received pt from charger tester, a/o x4, SR, on 3L 02 sat well, on levo at 0.07mcg, did not want to eat his breakfast, f/c good urine output, v/s stable, c/o pain, Dilaudid 2mg ivp given, pt turns and repositions by himself.
[2020-05-13 08:18] LABS: BAND % (MANUAL) 12 % (0.0-5.0); EOSINOPHILS % (MANUAL) 2 % (0-4); LYMPHOCYTES % (MANUAL) 20 % (16-48); NEUTROPHILS % (MANUAL) 66 (42-76)
[2020-05-13] MEDS: ASCORBIC ACID 500 MG TABLET PO SCH (08:53)
[2020-05-13] MEDS: SENNOSIDES 8.6 MG TABLET PO PRN (08:53)
[2020-05-13] MEDS: CALCIUM CARBONATE (1250) 500 MG TABLET PO SCH ×2 (08:53→16:51)
[2020-05-13] MEDS: MYCOPHENOLATE MOFETIL 250 MG CAPSULE PO SCH ×2 (08:53→16:51)
[2020-05-13] MEDS ORDERED: HYDROMORPHONE INJ 2 MG/ML DISP.SYRIN IV PRN (09:30)
[2020-05-13 09:32] LABS: HEMOGLOBIN 7.5 g/dL (13.5-17.5)
[2020-05-13] MEDS ORDERED: NALOXONE HCL 0.4 MG/ML AMPUL IV PRN (10:00)
[2020-05-13] MEDS: FENTANYL TD PATCH (50 MCG/HR) 50 MCG/HR PATCH.TD72 TD SCH (12:09)
[2020-05-13] MEDS: NOREPINEPHRINE 8 MG in IV NS 0.9% 242 ML IV PRN (12:11)
[2020-05-13] MEDS: IV NS 0.9% 1,000 ML IV PRN (12:57)
[2020-05-13] MEDS: HYDROMORPHONE INJ 2 MG/ML DISP.SYRIN IV PRN ×3 (15:10→21:46)
[2020-05-13] MEDS: VANCOMYCIN 1 GM in IV D5W 250 ML IV SCH ×2 (15:11→22:00)
--- NOTE | 2020-05-13 16:29 | NUR ---
pt resting in the bed, a/o x4, SR, on 4L 02, lungs congested, expectorating bloody sputum, MD is aware, eats very little, good urine output, v/s stable, pain meds give q3hrs, CT scan done, pt turns and repositions by himself.
--- NOTE | 2020-05-13 22:10 | NUR ---
CALLED AFTER HOURS PHARMACY ([facility]) ABOUT ELEVATED TROUGH LEVEL OF 25. SPOKE TO TRISHA AND INSTRUCTED TO HOLD VANCOMYCIN DUE AT 2200 AND THEY WILL F/U IN THE MORNING WITH PHARMACY.
[2020-05-14] VITALS (92 sets, daily range): BP systolic 77–123; BP diastolic 22–83
--- NOTE | 2020-05-14 | NUR ---
PATIENT CONTINUES TO HAVE EXPECTORATING BLOODY SPUTUM THROUGH THE MOUTH AND NOSE. PATIENT STATES THIS IS THE MOST THAT IT HAS HAPPENED. PATIENT GOT A CT OF CHEST AND ABD (05/13/20) BUT SAYS HE HAS NOT SPOKEN TO ANYONE ABOUT THE RESULTS. HE DOES NOT UNDERSTAND WHY HE HAS BLOODY SPUTUM COMING OUT FROM HIS LUNGS. ASSESSED PATIENT AUSCULTATED LUNG SOUNDS: LUNGS ARE DIMINISHED WITH CRACKLES THROUGHOUT LUNGS.
[2020-05-14] MEDS: MEROPENEM 1 G in IV NS 0.9% 100 ML IV SCH ×2 (00:34→12:40)
[2020-05-14] MEDS: HYDROMORPHONE INJ 2 MG/ML DISP.SYRIN IV PRN ×7 (00:44→22:07)
[2020-05-14 00:50] LABS: BASOPHILS # (AUTO) 0.1 /CMM (0.0-0.2); BASOPHILS % (AUTO) 1.3 % (0.0-2.0); EOSINOPHILS % (AUTO) 0.5 % (0.0-6.0); LYMPHOCYTES # (AUTO) 0.6 /CMM (0.8-4.8); LYMPHOCYTES % (AUTO) 9.4 % (20.0-44.0); MEAN CORPUSCULAR HGB CONC 33 g/dl (31.0-36.0); MEAN CORPUSCULAR VOLUME 88 fL (80-96); MONOCYTES # (AUTO) 0.1 /CMM (0.1-1.30); MONOCYTES % (AUTO) 1.6 % (2.0-12.0); NEUTROPHILS # (AUTO) 5.8 /CMM (1.8-8.9); NEUTROPHILS % (AUTO) 87.2 % (43.0-81.0); PLATELET COUNT (AUTO) 54 /CMM (150-450); RED BLOOD CELL COUNT(AUTO) 2.22 MIL/uL (4.5-6.0); WHITE BLOOD COUNT (AUTO) 6.7 K/uL (4.3-11.0)
[2020-05-14 00:55] LABS: HEMATOCRIT 20 % (39-51); HEMOGLOBIN 6.5 g/dL (13.5-17.5)
--- NOTE | 2020-05-14 01:00 | NUR ---
PAGED CHONG ABOUT PATIENT CONSTANTLY HAVING BLOOD SPUTUM WELL A BLOODY NOSE. CHONG ORDERED A CBC STAT. WILL F/U
--- NOTE | 2020-05-14 01:15 | NUR ---
CRITICAL HGB OF 6.5 AND PLT OF 54 WAS REPORTED TO TROY SCHWARZ. ORDERED 1 UNIT OF PRBC.
[2020-05-14 02:16] LABS: BAND % (MANUAL) 26 % (0.0-5.0); LYMPHOCYTES % (MANUAL) 6 % (16-48); METAMYELOCYTES % 4 % (0-0); MONOCYTES % (MANUAL) 2 % (0-11.0); MYELOCYTES % 5 % (0-0); NEUTROPHILS % (MANUAL) 56 (42-76); PROMYELOCYTES % 1 % (0-0)
--- NOTE | 2020-05-14 02:55 | NUR ---
BLOOD TRANSFUSION STARTED. NO SIGNS OF ADVERSE SIDE AFFECTS. VITALS WNL. WILL CONTINUE TO MONITOR.
[2020-05-14] MEDS: GABAPENTIN 300 MG CAPSULE PO SCH ×3 (05:00→21:30)
--- NOTE | 2020-05-14 05:04 | NUR ---
BLOOD TRANSFUSION COMPLETE. NO ADVERSE AFFECTS. VITALS WNL. PATIENT CONTINUES TO COUGH UP RED SPUTUM WITH CLOTS.
[2020-05-14] MEDS: HYDROCORTISONE SOD SUCCINATE 100 MG/2 ML VIAL IV SCH ×3 (05:27→21:30)
[2020-05-14 06:20] LABS: BASOPHILS # (AUTO) 0.1 /CMM (0.0-0.2); BASOPHILS % (AUTO) 2.1 % (0.0-2.0); EOSINOPHILS % (AUTO) 0.8 % (0.0-6.0); HEMATOCRIT 22 % (39-51); HEMOGLOBIN 7.3 g/dL (13.5-17.5); LYMPHOCYTES # (AUTO) 0.7 /CMM (0.8-4.8); MEAN CORPUSCULAR HGB CONC 34 g/dl (31.0-36.0); MEAN CORPUSCULAR VOLUME 88 fL (80-96); MONOCYTES # (AUTO) 0.1 /CMM (0.1-1.30); MONOCYTES % (AUTO) 1.9 % (2.0-12.0); NEUTROPHILS # (AUTO) 5.1 /CMM (1.8-8.9); NEUTROPHILS % (AUTO) 83.2 % (43.0-81.0); RED BLOOD CELL COUNT(AUTO) 2.46 MIL/uL (4.5-6.0); WHITE BLOOD COUNT (AUTO) 6.1 K/uL (4.3-11.0)
[2020-05-14 07:03] LABS: CALCIUM, SERUM 8.3 mg/dL (8.5-10.1); CREATININE 0.8 mg/dL (0.6-1.3); MAGNESIUM 2.2 mg/dL (1.8-2.4); PHOSPHORUS 3.7 mg/dL (2.5-4.9); POTASSIUM 3.8 mmol/L (3.5-5.1)
[2020-05-14 07:09] LABS: IMMUNOGLOBULIN A, SERUM 81 mg/dL (90-386); IMMUNOGLOBULIN G, SERUM 386 mg/dL (603-1613); IMMUNOGLOBULIN M, SERUM 238 mg/dL (20-172)
--- NOTE | 2020-05-14 07:10 | NUR ---
report given to morning shift nurse. RN aware of all of patients needs and aware about bloody sputum.
[2020-05-14 07:11] LABS: D-DIMER 6.3 mg/L(FEU (0.17-0.50)
[2020-05-14 07:14] LABS: PLATELET COUNT (AUTO) 47 /CMM (150-450)
[2020-05-14 07:43] LABS: BAND % (MANUAL) 1 % (0.0-5.0); EOSINOPHILS % (MANUAL) 1 % (0-4); LYMPHOCYTES % (MANUAL) 15 % (16-48); MONOCYTES % (MANUAL) 7 % (0-11.0); NEUTROPHILS % (MANUAL) 76 (42-76)
--- NOTE | 2020-05-14 08:00 | NUR ---
ICU/RN PT IS ON THE BED ,ON 3L N/C SAT O2-91%.ON LEVOPHED DRIP.RIGHT UPPER ARM PICC LINE .IV INFUSING ORDERED.F/C DRAINING WITH YELLOW URINE.PT IS COUGHING BLOOD.MD NOTIFIED.LABS REVIEW.CONTINUE MONITORING.
[2020-05-14 08:29] LABS: HIV SCRN 4G wRFX Non Reactive (Non Reactive)
[2020-05-14] MEDS: CALCIUM CARBONATE (1250) 500 MG TABLET PO SCH ×2 (08:30→16:33)
[2020-05-14] MEDS: MYCOPHENOLATE MOFETIL 250 MG CAPSULE PO SCH ×2 (08:31→16:32)
[2020-05-14] MEDS: ASCORBIC ACID 500 MG TABLET PO SCH (08:31)
[2020-05-14] MEDS: MAGNESIUM HYDROXIDE 30 ML UDC PO PRN (09:10)
[2020-05-14] MEDS: MAG HYDROX/AL HYDROX/SIMETH 30 ML UDC PO PRN (09:10)
[2020-05-14] MEDS: VANCOMYCIN 1 GM in IV D5W 250 ML IV SCH ×2 (09:13→21:36)
[2020-05-14] MEDS: NOREPINEPHRINE 8 MG in IV NS 0.9% 242 ML IV PRN (13:26)
[2020-05-14] MEDS: ALPRAZOLAM 0.5 MG TABLET PO PRN ×2 (13:31→22:15)
[2020-05-14 14:10] LABS: *SPE A/G RATIO 0.8 (0.7-1.7); *SPE ALBUMIN 2.1 g/dL (2.9-4.4); *SPE ALPHA-1-GLOBULIN 0.4 g/dL (0.0-0.4); *SPE ALPHA-2-GLOBULIN 0.8 g/dL (0.4-1.0); *SPE BETA GLOBULIN 0.7 g/dL (0.7-1.3); *SPE GLOBULIN, TOTAL 2.5 g/dL (2.2-3.9); *SPE M-SPIKE Not Observed g/dL (Not Observed); *SPEGAMMA GLOBULIN 0.6 g/dL (0.4-1.8)
--- NOTE | 2020-05-14 15:00 | NUR ---
ICU/SUPPLIER QUALITY ENGINEERING MANAGER AT BED SIDE.PT UNDERSTAND HIS PROGNOSES.CODE STATUS CHANGED TO DNR/DNI. NOTIFIED.
[2020-05-14] MEDS: IV NS 0.9% 1,000 ML IV PRN (16:18)
--- NOTE | 2020-05-14 18:30 | NUR ---
ICU/RN BLOOD TRANSFUSION STARTED ORDERED.PT STILL ON LEVOPHED DRIP.COUGHING OUT A LOT OF BLOOD ,HAS NOSE BLEEDING.REFUSED TO EAT.DUE MEDS ARE GIVEN ORDERED.PAIN MEDS GIVEN EVERY 3 HRS.CONTINUE MONITORING
--- NOTE | 2020-05-14 22:00 | NUR ---
patient is awake and coughing up blood and blood clots. vitals are wnl. patient c/o pain generalized and pain management initiated. will continue to monitor.
--- NOTE | 2020-05-14 22:27 | NUR ---
received patient in no acute distress in bed. patient is a/o x 4 and able to make needs known. patient is currently resting in bed, but when awake is coughing up blood. Currently patient is not coughing. patient is on o2 via nasal cannula at 4 lpm and tolerating well. Patient has romero catheter that is clean dry intact and patent with yellow urine draining. patient not currently c/o any sob, difficulty breathing or pain at this time. patient has right upper arm picc line that is clean dry intact and patent. 1 unit PRBC infusing at this time. no reaction noted. bed in low lock position with rials up x 2. call light within reach and all safety measures ensured and carried out. will continue to monitor.
--- NOTE | 2020-05-14 22:34 | NUR ---
contacted blood bank about platelets and was told that platelets will take a long time to arrive. no exact time given. will continue to wait for arrival of platelets.
--- NOTE | 2020-05-14 23:50 | NUR ---
notified by blood bank that platelets are available for pickup. notified charge nurse that platelets are ready and will go pick them up.
[2020-05-15] VITALS (101 sets, daily range): BP systolic 81–126; BP diastolic 44–78
[2020-05-15] MEDS: MEROPENEM 1 G in IV NS 0.9% 100 ML IV SCH ×3 (00:53→23:20)
[2020-05-15] MEDS: HYDROMORPHONE INJ 2 MG/ML DISP.SYRIN IV PRN ×5 (03:34→23:21)
[2020-05-15 04:40] LABS: BASOPHILS % (AUTO) 0.4 % (0.0-2.0); LYMPHOCYTES # (AUTO) 0.9 /CMM (0.8-4.8); LYMPHOCYTES % (AUTO) 13.7 % (20.0-44.0); MEAN CORPUSCULAR HGB CONC 34 g/dl (31.0-36.0); MEAN CORPUSCULAR VOLUME 89 fL (80-96); MONOCYTES # (AUTO) 0.1 /CMM (0.1-1.30); MONOCYTES % (AUTO) 2.2 % (2.0-12.0); NEUTROPHILS # (AUTO) 5.2 /CMM (1.8-8.9); NEUTROPHILS % (AUTO) 82.7 % (43.0-81.0); PLATELET COUNT (AUTO) 58 /CMM (150-450); RED BLOOD CELL COUNT(AUTO) 2.26 MIL/uL (4.5-6.0); WHITE BLOOD COUNT (AUTO) 6.3 K/uL (4.3-11.0)
[2020-05-15 04:45] LABS: HEMATOCRIT 20 % (39-51); HEMOGLOBIN 6.8 g/dL (13.5-17.5)
--- NOTE | 2020-05-15 04:47 | NUR ---
received critical lab value HGB 6.[address] Cyril flanagan will administer 1 unit of PRBC.
[2020-05-15 04:56] LABS: CREATININE 0.8 mg/dL (0.6-1.3); MAGNESIUM 2.8 mg/dL (1.8-2.4); PHOSPHORUS 3.2 mg/dL (2.5-4.9); POTASSIUM 4.4 mmol/L (3.5-5.1)
[2020-05-15 05:32] LABS: BAND % (MANUAL) 3 % (0.0-5.0); EOSINOPHILS % (MANUAL) 2 % (0-4); LYMPHOCYTES % (MANUAL) 19 % (16-48); MONOCYTES % (MANUAL) 11 % (0-11.0); NEUTROPHILS % (MANUAL) 65 (42-76)
[2020-05-15] MEDS: GABAPENTIN 300 MG CAPSULE PO SCH ×3 (05:52→20:41)
[2020-05-15] MEDS: HYDROCORTISONE SOD SUCCINATE 100 MG/2 ML VIAL IV SCH ×3 (05:52→20:40)
[2020-05-15] MEDS: ALPRAZOLAM 0.5 MG TABLET PO PRN ×2 (06:25→14:29)
--- NOTE | 2020-05-15 07:24 | NUR ---
patient remains in no acute distress in bed. patient did not have any significant change in condition during shift. all needs met, all orders carried out. will endorse care to am RN for continuity of care.
[2020-05-15] MEDS: CALCIUM CARBONATE (1250) 500 MG TABLET PO SCH ×2 (08:30→16:10)
[2020-05-15] MEDS: ASCORBIC ACID 500 MG TABLET PO SCH (08:30)
[2020-05-15] MEDS: MYCOPHENOLATE MOFETIL 250 MG CAPSULE PO SCH ×2 (08:30→16:10)
[2020-05-15] MEDS: VANCOMYCIN 1 GM in IV D5W 250 ML IV SCH ×2 (09:00→20:41)
--- NOTE | 2020-05-15 09:00 | NUR ---
ICU/RN DUE MEDS ARE GIVEN ORDERED.1 UNIT PRBC TRANSFUSED.NO S/S OF BLOOD TRANSFUSION REACTION NOTED.AFEBRILE.NO PAIN REPORTED AT THIS TIME.PT IS ON 5L N/C SAT O2-95%. ON LEVOPHED DRIP AND ON IV FLUIDS.RIGHT UPPER ARM PICC LINE.F/C DRAINING WITH YELLOW URINE.CONTINUE MONITORING.
[2020-05-15] MEDS: IV NS 0.9% 1,000 ML IV PRN (11:00)
[2020-05-15] MEDS: NOREPINEPHRINE 8 MG in IV NS 0.9% 242 ML IV PRN ×2 (12:10→20:39)
--- NOTE | 2020-05-15 19:30 | NUR ---
RN NOTE RECEIVED PATIENT IN BED, AO X4, IN NO S/SX OF ACUTE DISTRESS AT THIS TIME. PATIENT'S BREATHING IS EVEN AND UNLABORED. PATIENT IS ON 5 L OF OXYGEN VIA NC, TOLERATING WELL, SATURATING AT 98%. PATIENT ON BEDSIDE MONITOR READING SR, HR IS 87. NOTED VALENTINO TLC, PATENT AND FLUSHING WELL, WITH NS INFUSING AT 75 ML/HR, AND NOREPINEPHRINE DRIP AT 0.2 MCG/KG/MIN, NO S/S OF INFECTION OR INFILTRATION. ORTIZ CATH CONNECTED TO URINE BAG IN PLACE, DRAINING TO A CLEAR YELLOW URINE. SAFETY MEASURES IMPLEMENTED PER PROTOCOL. ASPIRATION AND FALL PRECAUTIONS OBSERVED. PATIENT BED ALARM IS ON. HEAD OF BED ELEVATED. BED IS LOCKED, IN LOWEST POSITION AND SIDE RAILS UP. CALL LIGHT WITHIN REACH OF PATIENT. WILL CONTINUE TO MONITOR AND REASSESS FOR ANY CHANGES.
[2020-05-15] MEDS ORDERED: NOREPINEPHRINE 8MG/250ML RTU 250 ML IV ONE (20:35)
[2020-05-16] VITALS (71 sets, daily range): BP systolic 89–126; BP diastolic 48–74
[2020-05-16] MEDS: ALPRAZOLAM 0.5 MG TABLET PO PRN ×2 (00:39→07:23)
[2020-05-16] MEDS ORDERED: NOREPINEPHRINE 8MG/250ML RTU 250 ML IV ONE (01:59)
[2020-05-16] MEDS: NOREPINEPHRINE 8 MG in IV NS 0.9% 242 ML IV PRN ×2 (02:04→13:14)
[2020-05-16] MEDS: HYDROMORPHONE INJ 2 MG/ML DISP.SYRIN IV PRN ×5 (04:34→20:18)
[2020-05-16] MEDS: GABAPENTIN 300 MG CAPSULE PO SCH ×3 (04:34→20:19)
[2020-05-16] MEDS: HYDROCORTISONE SOD SUCCINATE 100 MG/2 ML VIAL IV SCH ×3 (04:34→20:19)
[2020-05-16 05:10] LABS: CALCIUM, SERUM 8.8 mg/dL (8.5-10.1); CREATININE 0.8 mg/dL (0.6-1.3); POTASSIUM 3.9 mmol/L (3.5-5.1)
[2020-05-16 05:25] LABS: D-DIMER 3.98 mg/L(FEU (0.17-0.50)
[2020-05-16 05:38] LABS: BASOPHILS % (AUTO) 0.4 % (0.0-2.0); EOSINOPHILS % (AUTO) 0.4 % (0.0-6.0); HEMATOCRIT 22 % (39-51); HEMOGLOBIN 7.4 g/dL (13.5-17.5); LYMPHOCYTES % (AUTO) 13.2 % (20.0-44.0); MEAN CORPUSCULAR HGB CONC 34 g/dl (31.0-36.0); MEAN CORPUSCULAR VOLUME 90 fL (80-96); MONOCYTES # (AUTO) 0.2 /CMM (0.1-1.30); MONOCYTES % (AUTO) 2.9 % (2.0-12.0); NEUTROPHILS # (AUTO) 6.5 /CMM (1.8-8.9); NEUTROPHILS % (AUTO) 83.1 % (43.0-81.0); RED BLOOD CELL COUNT(AUTO) 2.46 MIL/uL (4.5-6.0); WHITE BLOOD COUNT (AUTO) 7.8 K/uL (4.3-11.0)
[2020-05-16] MEDS: IV NS 0.9% 1,000 ML IV PRN ×2 (05:42→21:28)
[2020-05-16 06:13] LABS: LYMPHOCYTES % (MANUAL) 13 % (16-48); MONOCYTES % (MANUAL) 1 % (0-11.0); NEUTROPHILS % (MANUAL) 83 (42-76); PLATELET COUNT (AUTO) 37 /CMM (150-450)
[2020-05-16 06:14] LABS: EOSINOPHILS % (MANUAL) 3 % (0-4)
--- NOTE | 2020-05-16 06:35 | NUR ---
RN NOTE CBC RESULTED, HGB 7.4. WILL TRANSFUSE [address] ETIENNE'S TRANSFUSION PARAMETERS: TRANSFUSE 1 UNIT PRBC IF HGB <8. ELECTRICIAN SOUND MADE AWARE. Addendum: 05/16/20 at 0641 by KANE HALEY RN HCT LEVEL 22
--- NOTE | 2020-05-16 07:30 | NUR ---
ICU/RN PT IS ON 5L N/C SAT O2-98%. AFEBRILE .C/O OF PAIN 8-03/25.DILAUDID 4 MG IV GIVEN ORDERED.ON LEVOPHED DRIP.RIGHT UPPER ARM PICC LINE.IV INFUSING ORDERED. F/C DRAINING WITH YELLOW URINE.SKIN INTACT. REPOSITION FOR COMFORT.
--- NOTE | 2020-05-16 07:31 | NUR ---
RN NOTE PATIENT REMAINS IN ROOM RESTING COMFORTABLY. NO SIGNS OF RESPIRATORY DISTRESS AT 5LPM OXYGEN, TOLERATING WELL SATURATING @ >98% SP02. IV FLUID OF NS INFUSING AT 75 ML/HR, AND NOREPINEPHRINE DRIP AT 0.2 MCG/KG/MIN. PATIENT IS CLEAN , DRY AND COMFORTABLE THROUGHOUT THE SHIFT. ALL DUE MEDS GIVEN ORDERED ; PATIENT TOLERATED WELL. SAFETY MEASURES IMPLEMENTED, BED IN LOWEST POSITION, LOCKED, SIDE RAILS UP, CALL LIGHT WITHIN REACH. ASPIRATION, BLEEDING AND FALL PRECAUTIONS OBSERVED AT ALL TIMES. ENDORSED TO ISIDRA LUIS FOR CONTINUATION OF CARE.
[2020-05-16] MEDS: VANCOMYCIN 1 GM in IV D5W 250 ML IV SCH ×2 (08:10→20:51)
[2020-05-16] MEDS: ASCORBIC ACID 500 MG TABLET PO SCH (08:10)
[2020-05-16] MEDS: MYCOPHENOLATE MOFETIL 250 MG CAPSULE PO SCH ×2 (08:10→16:11)
[2020-05-16] MEDS: CALCIUM CARBONATE (1250) 500 MG TABLET PO SCH ×2 (08:11→16:11)
[2020-05-16] MEDS ORDERED: diphenhydrAMINE HCL 50 MG/ML VIAL IV ONE (11:00)
[2020-05-16] MEDS ORDERED: ACETAMINOPHEN 325 MG TABLET PO ONE (11:00)
[2020-05-16] MEDS: MEROPENEM 1 G in IV NS 0.9% 100 ML IV SCH (12:43)
[2020-05-16] MEDS: FENTANYL TD PATCH (50 MCG/HR) 50 MCG/HR PATCH.TD72 TD SCH (13:12)
[2020-05-16] MEDS: MAGNESIUM HYDROXIDE 30 ML UDC PO PRN (16:11)
[2020-05-16] MEDS: MAG HYDROX/AL HYDROX/SIMETH 30 ML UDC PO PRN (16:11)
[2020-05-16] MEDS: SENNOSIDES 8.6 MG TABLET PO PRN (16:11)
--- NOTE | 2020-05-16 18:30 | NUR ---
ICU/RN 1 UNIT PLT GIVEN ORDERED. NO S/S OF REACTION NOTED.V/S STABLE,AFEBRILE.ON LEVOPHED DRIP.IV INFUSING ORDERED.PM CARE PROVIDED.REPOSITION FOR COMFORT.CONTINUE MONITORING.
--- NOTE | 2020-05-16 19:30 | NUR ---
OPERATIONS ACCOUNTANT NOTE, RECEIVED PATIENT ASLEEP AT THIS TIME, AROUSES TO VERBAL STIMULI, BREATHING EVEN AND UNLABORED, NO SIGNS SOB/RESPIRATORY DISTRESS AT THIS TIME, ON 5LPM OXYGEN, TOLERATING WELL SATURATING WITH OPTIMAL O2 SAT LEVEL, VALENTINO PICC LINE PATENT AND INTACT, IV FLUID OF NS INFUSING AT 75 ML/HR, AND NOREPINEPHRINE DRIP AT 0.2 MCG/KG/MIN BOTH INFUSING WELL AN PATIENT TOLERATED WELL, BED IN LOWEST POSITION, LOCKED, SIDE RAILS UP, CALL LIGHT WITHIN REACH , BLEEDING AND FALL PRECAUTIONS OBSERVED AT ALL TIMES, ONE PRBC TO INFUSE, WILL CONTINUE TO MONITOR CLOSELY.
[2020-05-17] VITALS (49 sets, daily range): BP systolic 88–130; BP diastolic 50–89
[2020-05-17] MEDS: MEROPENEM 1 G in IV NS 0.9% 100 ML IV SCH ×3 (00:17→23:18)
[2020-05-17] MEDS: HYDROMORPHONE INJ 2 MG/ML DISP.SYRIN IV PRN ×7 (00:20→22:04)
[2020-05-17] MEDS: ALPRAZOLAM 0.5 MG TABLET PO PRN ×2 (00:27→09:58)
[2020-05-17] MEDS: HYDROCORTISONE SOD SUCCINATE 100 MG/2 ML VIAL IV SCH ×3 (04:45→20:17)
[2020-05-17] MEDS: GABAPENTIN 300 MG CAPSULE PO SCH ×3 (04:46→20:17)
[2020-05-17 04:57] LABS: CALCIUM, SERUM 8.4 mg/dL (8.5-10.1); CREATININE 0.9 mg/dL (0.6-1.3); POTASSIUM 3.4 mmol/L (3.5-5.1)
[2020-05-17] MEDS: NOREPINEPHRINE 8 MG in IV NS 0.9% 242 ML IV PRN ×2 (05:32→12:55)
[2020-05-17 06:37] LABS: BASOPHILS # (AUTO) 0.1 /CMM (0.0-0.2); EOSINOPHILS % (AUTO) 0.8 % (0.0-6.0); HEMATOCRIT 24 % (39-51); HEMOGLOBIN 8.1 g/dL (13.5-17.5); LYMPHOCYTES # (AUTO) 0.8 /CMM (0.8-4.8); LYMPHOCYTES % (AUTO) 11.4 % (20.0-44.0); MEAN CORPUSCULAR HGB CONC 33 g/dl (31.0-36.0); MEAN CORPUSCULAR VOLUME 93 fL (80-96); MONOCYTES # (AUTO) 0.2 /CMM (0.1-1.30); MONOCYTES % (AUTO) 2.7 % (2.0-12.0); NEUTROPHILS # (AUTO) 6.3 /CMM (1.8-8.9); NEUTROPHILS % (AUTO) 84.1 % (43.0-81.0); PLATELET COUNT (AUTO) 70 /CMM (150-450); RED BLOOD CELL COUNT(AUTO) 2.63 MIL/uL (4.5-6.0); WHITE BLOOD COUNT (AUTO) 7.5 K/uL (4.3-11.0)
--- NOTE | 2020-05-17 07:00 | NUR ---
DENTAL LABORATORY WORKER CLOSING NOTE, PATIENT ASLEEP AT THIS TIME, AROUSES TO VERBAL STIMULI, BREATHING EVEN AND UNLABORED, NO SIGNS SOB/RESPIRATORY DISTRESS AT THIS TIME, ON 4LPM OXYGEN, TOLERATING WELL SATURATING WITH OPTIMAL O2 SAT LEVEL, VALENTINO PICC LINE PATENT AND INTACT, IV FLUID OF NS INFUSING AT 75 ML/HR, AND NOREPINEPHRINE DRIP AT 0.2 MCG/KG/MIN S/P UNIT OF PRBC LAST NIGHT, HG RESULT STILL PENDING FOR THIS MORNING, BED LOCKED AND LOWEST POSITION, SIDE RAILS UP, CALL LIGHT WITHIN REACH , BLEEDING AND FALL PRECAUTIONS OBSERVED AT ALL TIMES, NO ACTIVE BLEEDING/EMESIS DURING THE NIGHT, WITH STABLE VS, WILL ENDORSE TO ONCOMING NURSE FOR CONTINUATION OF CARE.
--- NOTE | 2020-05-17 07:45 | NUR ---
ICU/RN PT IS ON THE BED .ON 5L N/C .SAT O2-97%.ON LEVOPHED DRIP AND IV FLUIDS.RIGHT UPPER ARM PICC LINE.F/C DRAINING WITH YELLOW URINE.PT IS AGITATED AND CONFUSED THIS MORNING.LABS REVIEW. REPOSITION FOR COMFORT.
[2020-05-17 07:59] LABS: BAND % (MANUAL) 18 % (0.0-5.0); LYMPHOCYTES % (MANUAL) 20 % (16-48); METAMYELOCYTES % 2 % (0-0); MONOCYTES % (MANUAL) 8 % (0-11.0); MYELOCYTES % 1 % (0-0); NEUTROPHILS % (MANUAL) 51 (42-76)
[2020-05-17] MEDS: MYCOPHENOLATE MOFETIL 250 MG CAPSULE PO SCH ×2 (08:12→16:42)
[2020-05-17] MEDS: CALCIUM CARBONATE (1250) 500 MG TABLET PO SCH ×2 (08:12→16:41)
[2020-05-17] MEDS: ASCORBIC ACID 500 MG TABLET PO SCH (08:13)
[2020-05-17] MEDS: VANCOMYCIN 1 GM in IV D5W 250 ML IV SCH ×2 (08:13→20:16)
[2020-05-17] MEDS: POTASSIUM CL. PREMIX PERIPHER. 50 ML IV SCH ×4 (08:13→12:30)
--- NOTE | 2020-05-17 09:00 | NUR ---
ICU/RN PT C/O FO PAIN 04/24.DILAUDID 4 MG IV GIVEN ORDERED.REPOSITION FOR COMFORT.
[2020-05-17] MEDS: LORAZEPAM INJ 2 MG/ML VIAL IV PRN (10:07)
--- NOTE | 2020-05-17 10:10 | NUR ---
ICU/RN PT IS VERY AGITATED.C/O OF PAIN .DR RIDDLE SEEN THE PT .NEW ORDERS RECEIVED.ATIVAN 1 MG IV GIVEN ORDERED.REPOSITION FOR COMFORT.CONTINUE MONITORING.
[2020-05-17] MEDS ORDERED: NOREPINEPHRINE 8 MG in IV NS 0.9% 242 ML IV PRN (13:00)
--- NOTE | 2020-05-17 17:00 | NUR ---
ICU/RN PM CARE PROVIDED.PT C/O OF PAIN -04/24.DILAUDID 4 MG IV GIVEN ORDERED.REPOSITION FOR COMFORT.PT REFUSED TO EAT. STILL ON LEVOPHED DRIP.K LEVEL WAS 3.4.REPLACED WITH 40 MEQ OF KCL IV ORDERED. DR RIDDLE SEEN THE PT AND TALK TO THE .OK TO FAMILY VISIT THE PATIENT.
--- NOTE | 2020-05-17 19:40 | NUR ---
MELANGEUR OPERATOR OPENING NOTE, RECEIVED PATIENT ASLEEP AT THIS TIME, AROUSES TO VERBAL STIMULI, BREATHING EVEN AND UNLABORED, ON 5LPM OXYGEN,NO SIGNS SOB/RESPIRATORY DISTRESS AT THIS TIME, TOLERATING WELL SATURATING 92-94% AT THIS TIME, VALENTINO PICC LINE PATENT AND INTACT, IV FLUID OF NS INFUSING AT 75 ML/HR, AND NOREPINEPHRINE DRIP AT 0.05MCG/KG/MIN BOTH INFUSING WELL AN PATIENT TOLERATED WELL, BED IN LOWEST POSITION, LOCKED, 2 1/2 SIDE RAILS UP, CALL LIGHT WITHIN REACH, BLEEDING AND FALL PRECAUTIONS OBSERVED AT ALL TIMES, WILL CONTINUE TO MONITOR CLOSELY.
[2020-05-18] VITALS (51 sets, daily range): BP systolic 94–133; BP diastolic 51–88
[2020-05-18] MEDS: LORAZEPAM INJ 2 MG/ML VIAL IV PRN ×3 (00:54→11:38)
[2020-05-18] MEDS: HYDROMORPHONE INJ 2 MG/ML DISP.SYRIN IV PRN ×6 (02:08→23:49)
[2020-05-18] MEDS: IV NS 0.9% 1,000 ML IV PRN ×2 (03:08→18:33)
[2020-05-18] MEDS: GABAPENTIN 300 MG CAPSULE PO SCH ×3 (04:28→21:28)
[2020-05-18] MEDS: HYDROCORTISONE SOD SUCCINATE 100 MG/2 ML VIAL IV SCH ×3 (04:28→21:28)
[2020-05-18 04:42] LABS: BASOPHILS # (AUTO) 0.1 /CMM (0.0-0.2); BASOPHILS % (AUTO) 0.7 % (0.0-2.0); EOSINOPHILS % (AUTO) 0.9 % (0.0-6.0); HEMATOCRIT 25 % (39-51); HEMOGLOBIN 8.1 g/dL (13.5-17.5); LYMPHOCYTES # (AUTO) 0.8 /CMM (0.8-4.8); LYMPHOCYTES % (AUTO) 10.7 % (20.0-44.0); MEAN CORPUSCULAR HGB CONC 33 g/dl (31.0-36.0); MEAN CORPUSCULAR VOLUME 93 fL (80-96); MONOCYTES # (AUTO) 0.2 /CMM (0.1-1.30); MONOCYTES % (AUTO) 2.5 % (2.0-12.0); NEUTROPHILS # (AUTO) 6.5 /CMM (1.8-8.9); NEUTROPHILS % (AUTO) 85.2 % (43.0-81.0); PLATELET COUNT (AUTO) 54 /CMM (150-450); RED BLOOD CELL COUNT(AUTO) 2.66 MIL/uL (4.5-6.0); WHITE BLOOD COUNT (AUTO) 7.6 K/uL (4.3-11.0)
[2020-05-18 05:04] LABS: CALCIUM, SERUM 8.9 mg/dL (8.5-10.1); CREATININE 0.7 mg/dL (0.6-1.3); MAGNESIUM 2.4 mg/dL (1.8-2.4); PHOSPHORUS 3.5 mg/dL (2.5-4.9); POTASSIUM 4.2 mmol/L (3.5-5.1)
[2020-05-18 05:27] LABS: BAND % (MANUAL) 4 % (0.0-5.0); LYMPHOCYTES % (MANUAL) 17 % (16-48); METAMYELOCYTES % 8 % (0-0); MONOCYTES % (MANUAL) 10 % (0-11.0); NEUTROPHILS % (MANUAL) 61 (42-76)
--- NOTE | 2020-05-18 07:00 | NUR ---
CATSHOVEL DRIVER CLOSING NOTE, PATIENT ASLEEP AT THIS TIME, AROUSES TO VERBAL STIMULI, BREATHING EVEN AND UNLABORED, ON 5LPM OXYGEN,NO SIGNS SOB/RESPIRATORY DISTRESS AT THIS TIME, TOLERATING WELL SATURATING 92-95% AT THIS TIME, WITH EPISODES OF AGITATION, YELLING AND REMOVING TUBINGS DURING THE NIGHT, AND TRYING TO GET UP FROM BED, AND ATIVAN ADMINISTERED 2X, ALONG WITH DILAUDID FOR PAIN MANAGEMENT THROUGHOUT THE NIGHT, VALENTINO PICC LINE PATENT AND INTACT, IV FLUID OF NS INFUSING AT 75 ML/HR, AND NOREPINEPHRINE DRIP AT 0.05MCG/KG/MIN BOTH INFUSING WELL AND PATIENT TOLERATED WELL, BED LOCKED AND IN LOWEST POSITION, BE ALARM ON, 2 1/2 SIDE RAILS UP, CALL LIGHT WITHIN REACH, BLEEDING AND FALL PRECAUTIONS OBSERVED AT ALL TIMES, NO ACTIVE BLEEDING NOTED, WILL ENDORSE CONTINUITY OF CARE TO ONCOMING NURSE.
--- NOTE | 2020-05-18 09:09 | NUR ---
RN NOTES CALLED PHARMACY IN REGARDS TO [facility] BECAUSE THE TROUGH IS 20 .PHARMACY AID HOLD WILL ADJUST THE DOSE
[2020-05-18] MEDS: ASCORBIC ACID 500 MG TABLET PO SCH (09:10)
[2020-05-18] MEDS: CALCIUM CARBONATE (1250) 500 MG TABLET PO SCH ×2 (09:10→16:14)
[2020-05-18] MEDS: MYCOPHENOLATE MOFETIL 250 MG CAPSULE PO SCH ×2 (09:10→16:14)
--- NOTE | 2020-05-18 09:22 | NUR ---
RN OPENING NOTES PATIENT IS SLEEPING AT THIS TIME, AROUSES TO VERBAL STIMULI, BREATHING EVEN AND UNLABORED, ON 5LPM OXYGEN,NO SIGNS SOB/RESPIRATORY DISTRESS NOTED , TOLERATING WELL SATURATING 93 %AT THIS TIME, VALENTINO PICC LINE PATENT AND INTACT, IV FLUID OF NS INFUSING AT 75 ML/HR, AND NOREPINEPHRINE DRIP AT 0.05MCG/KG/MIN BOTH INFUSING WELL AND PATIENT TOLERATED WELL. SAFETY MEASUREMENTS ARE IMPLEMENTED PER HOSPITAL POLICY. BED IS IN LOWEST POSITION, LOCKED AND SIDE RAILS UP X2, CALL LIGHT WITHIN REACH, BLEEDING AND FALL PRECAUTIONS OBSERVED AT ALL TIMES, WILL CONTINUE TO MONITOR
[2020-05-18] MEDS ORDERED: VANCOMYCIN HCL 0.75 GM in IV D5W 250 ML IV SCH (10:00)
[2020-05-18] MEDS: MEROPENEM 1 G in IV NS 0.9% 100 ML IV SCH ×2 (12:15→20:07)
[2020-05-18] MEDS: ALPRAZOLAM 0.5 MG TABLET PO PRN (12:27)
--- NOTE | 2020-05-18 12:27 | NUR ---
RN NOTES PT IS VERY ANXIOUS GAVE XANAX
--- NOTE | 2020-05-18 13:22 | NUR ---
RN NOTES PT IS IN PAIN GAVE DILAUDID 4 MG
--- NOTE | 2020-05-18 14:00 | NUR ---
RN NOTES HELD LEVO DUE TO BP IS BEING WNL
--- NOTE | 2020-05-18 16:00 | NUR ---
RN NOTES GAVE REPORT TO DMITRIY
--- NOTE | 2020-05-18 20:00 | NUR ---
RN OPENING NOTE PT RECEIVED IN BED. PT A/O X1 , PT IS 8 L VIA SIMPLE MASK SATIN 92%, PT HAS UNLABORED BREATHING.PT IS ON HOT STONE SETTER SHOWING SR. SAFETY MEASURE IN PLACE BED AT LOWEST POSITION, LOCKED, SIDE RAILS UP X2, CALL LIGHT IN REACH.
[2020-05-18] MEDS: CEFTRIAXONE 1 G in IV D5W 50 ML IV SCH (21:37)
--- NOTE | 2020-05-18 23:34 | NUR ---
PT TRANSFERRED FROM ICU TO [facility] BED 2 REPORT RECIEVED FROM CARMEN LUIS. Addendum: 05/19/20 at 0012 by SHAE BERRY RN [id number] PT AGITATED TAKING OFF O2. YELLING PT IN RESTRAINTS BILATERAL SOFT WRIST RESTRAINTS PT MEDICATED WITH DILUADID FOR FLACC 8/10. PT REPOSITINED SAT UP IN HIGH FOWLERS POSITION. RESTRAINTS REMOVED AND REAPPLIED. 7884 PT LOOKS MORE RELAXED. EYES CLOSED NOT RESITING RESTRAINTS. STOPPED YELLING. NOT ATTEMPTTING TO REMOVE O2. SATUATING AT 92% 10 LITER FACE MACE. RR OF 22. WILL CONT TO MONITOR.
--- NOTE | 2020-05-18 23:40 | NUR ---
RN NOTE PT TRANSFERRED TO 3W VIA ACLS PROTOCOL.
[2020-05-19] VITALS: BP 133/81
[2020-05-19 00:38] VITALS: BP 106/67
--- NOTE | 2020-05-19 01:25 | NUR ---
telecine operator note patient on 10l simple mask , o2 sat 86-90%. patient now placed on 15l nonrebreather, 02 sat 96-97%.
[2020-05-19] MEDS: HYDROMORPHONE INJ 2 MG/ML DISP.SYRIN IV PRN ×8 (01:46→21:58)
--- NOTE | 2020-05-19 02:30 | NUR ---
NOTIFIED OF CHANGE IN CONDITION; VERFIED WITH HER ONLY WANTS COMFORT MEASURES. CALLED BY CHARGE NURSE ALISE AND NOTIFITED OF PATIENTS CONDITION. STATES SHE VERIFIED WOULD JUST LIKE COMFORT MEASURES TO BE PERFORMED AND DOESN'T WANT BIPAP IF PT REQUIRES MORE OXYGEN.
[2020-05-19 02:49] LABS: ABG BASE EXCESS -1.4 mmol/L; ABG OXYGEN SATURATION 97.6 % (92.0-98.5); ABG PCO2 85.8 mmHg (35.0-45.0); ABG PH 7.139 (7.350-7.450); ABG PO2 135.5 mmHg (75.0-100.0); AaDO2 491.7 mmHg; COHb 0.4 % (0.5-1.5); MetHb 0.3 % (0.0-1.5); O2Hb 96.9 % (94.0-97.0); SITE, ABG Right Radial
--- NOTE | 2020-05-19 03:30 | NUR ---
NAV INFORMED OF WIFES WISHES TO ONLY HAVE COMFORT MEASURES PERFORMED DOES NOT WANT TO HAVE BIPAP. REVIEWED ABG RESULTS WITH MD. NO NEED TO PERFORM CXR. NO NEW ORDERS RECIEVED.
--- NOTE | 2020-05-19 03:59 | NUR ---
AT THE BEDSIDE UPDATED ON PATIENT CONDITION. QUESTIONS CONCERNS ADDRESSED.
[2020-05-19] MEDS: HYDROCORTISONE SOD SUCCINATE 100 MG/2 ML VIAL IV SCH (04:25)
[2020-05-19] MEDS: GABAPENTIN 300 MG CAPSULE PO SCH ×3 (04:26→21:00)
--- NOTE | 2020-05-19 05:45 | NUR ---
LEAVING WILL RETURN AT 9 AM; REQUESTING THAT PATIENT NOT BE RESTRAINED. PT IS SEDATED AT THIS TIME NOT PULLING ON TUBES. RESTRAINTS REMOVED.
[2020-05-19 07:14] LABS: BASOPHILS # (AUTO) 0.1 /CMM (0.0-0.2); BASOPHILS % (AUTO) 0.7 % (0.0-2.0); EOSINOPHILS % (AUTO) 0.5 % (0.0-6.0); HEMATOCRIT 26 % (39-51); HEMOGLOBIN 8.3 g/dL (13.5-17.5); LYMPHOCYTES # (AUTO) 1.4 /CMM (0.8-4.8); LYMPHOCYTES % (AUTO) 12.2 % (20.0-44.0); MEAN CORPUSCULAR HGB CONC 32 g/dl (31.0-36.0); MEAN CORPUSCULAR VOLUME 94 fL (80-96); MONOCYTES # (AUTO) 0.2 /CMM (0.1-1.30); MONOCYTES % (AUTO) 1.5 % (2.0-12.0); NEUTROPHILS # (AUTO) 9.6 /CMM (1.8-8.9); NEUTROPHILS % (AUTO) 85.1 % (43.0-81.0); RED BLOOD CELL COUNT(AUTO) 2.75 MIL/uL (4.5-6.0); WHITE BLOOD COUNT (AUTO) 11.2 K/uL (4.3-11.0)
[2020-05-19 07:35] LABS: CALCIUM, SERUM 8.8 mg/dL (8.5-10.1); CREATININE 0.8 mg/dL (0.6-1.3); MAGNESIUM 2.6 mg/dL (1.8-2.4); PHOSPHORUS 5.8 mg/dL (2.5-4.9)
[2020-05-19 07:39] LABS: PLATELET COUNT (AUTO) 37 /CMM (150-450)
[2020-05-19 08:00] VITALS: BP 90/62
[2020-05-19] MEDS: MYCOPHENOLATE MOFETIL 250 MG CAPSULE PO SCH ×2 (09:00→17:00)
[2020-05-19] MEDS: CALCIUM CARBONATE (1250) 500 MG TABLET PO SCH ×2 (09:00→17:00)
[2020-05-19] MEDS: ASCORBIC ACID 500 MG TABLET PO SCH (09:00)
[2020-05-19] MEDS: FENTANYL TD PATCH (50 MCG/HR) 50 MCG/HR PATCH.TD72 TD SCH (11:15)
[2020-05-19 12:09] LABS: BAND % (MANUAL) 10 % (0.0-5.0); LYMPHOCYTES % (MANUAL) 4 % (16-48); METAMYELOCYTES % 1 % (0-0); MONOCYTES % (MANUAL) 4 % (0-11.0); MYELOCYTES % 7 % (0-0); NEUTROPHILS % (MANUAL) 74 (42-76)
--- NOTE | 2020-05-19 14:58 | NUR ---
RN NOTE PATIENT'S AT BEDSIDE. GUEST RELATIONS OFFICER DISCUSSED OPTIONS. DECIDED ON HOSPICE CARE BUT REQUESTED 24 HOURS TO DECIDE IF HOSPICE CARE WILL BE LOCATED AT HOME OR IN HOSPITAL. REQUESTED TO KEEP PATIENT COMFORTABLE WHILE IN THE HOSPITAL WITH NO TREATMENT. DR. LEE MADE AWAY.
[2020-05-19 16:00] VITALS: BP 87/46
[2020-05-19] MEDS: IV NS 0.9% 1,000 ML IV PRN (16:46)
--- NOTE | 2020-05-19 18:49 | NUR ---
RN CLOSING NOTE PATIENT CURRENTLY IN BED, FAMILY IN ROOM. PATIENT CURRENTLY APPEARS COMFORTABLE. CHANGED TO NPO STATUS. CASE MANAGEMENT DISCUSSED OPTIONS WITH PATIENT'S . WILL FOLLOW UP WITH BIOMEDICAL SCIENTIST IN THE MORNING AND HAVE A HOSPICE EVALUATION. IS CURRENTLY DECIDED ON COMFORT CARE FOR PATIENT AND IS DECIDING WHETHER TO HAVE PATIENT STAY IN THE HOSPITAL OR TAKE HIM HOME DURING HOSPICE CARE. PATIENT HAS PIC LINE ON RIGHT ARM, INTACT AND PATENT, CURRENTLY HAS NS RUNNING AT 75ML/HOUR FOR HYDRATION. PATEINT HAS A PATENT ORTIZ CATHETER. PATIENT'S PAIN CONTROLLED WITH IV DILAUDID AND FENTANYL PATCH. BED MAINTAINED IN LOWEST POSITION, SIDE RAILS UP. WILL ENDORSE TO NEXT SHIFT.
--- NOTE | 2020-05-19 19:34 | NUR ---
MS/TELE/RN RECEIVED PATIENT EYES CLOSED, NON VERBAL, RESTLESS, TRYING REMOVE OXYGEN, NO DISTRESS NOTED, FAMILY MEMBER AT BEDSIDE, FAMILY MEMBER REQUESTED TO GIVE PAIN MED, DILAUDID 4 MG IVP WAS GIVEN ORDERED. WILL MONITOR.
[2020-05-19 20:00] VITALS: BP 92/53
--- NOTE | 2020-05-19 20:41 | NUR ---
MS/TELE/RN PATIENT IS AGITATED AT THIS TIME, HELMINTHOLOGIST UNABLE TO DRAW BLOOD FOR LACTIC ACID. WILL REORDER FOR AM.
[2020-05-19] MEDS ORDERED: HYDROCORTISONE SOD SUCCINATE 100 MG/2 ML VIAL IV SCH (21:00)
--- NOTE | 2020-05-19 22:03 | NUR ---
MS/TELE/RN PATIENT IS VERY AGITATED, RESTLESS, TAKING OUT OXYGEN, MOANING, APPEARS IN PAIN, DILAUDID 4 MG IVP WAS GIVEN ORDERED, WILL CONTINUE TO MONITOR.
[2020-05-19] MEDS: CEFTRIAXONE 1 G in IV D5W 50 ML IV SCH (22:07)
--- NOTE | 2020-05-19 22:15 | NUR ---
MS/TELE/RN RECEIVED PATIENT FROM MS2 BY BED AWAKE, ALERT, ORIENTED, COMFORTABLE, NO SIGNS OF DISTRESS NOTED, MADE COMFORTABLE, PLACED CALL LIGHT IN REACH, WILL MONITOR. Addendum: 05/19/20 at 2307 by BLANCA SMITH RN PLS. DISREGARD ABOVE DOCUMENTATION, IT BELONGS TO ANOTHER PATIENT.
--- NOTE | 2020-05-19 22:45 | NUR ---
MS/AYLEEN/RN ENDORSED TO JANELLE JONES, FOR CONTINUITY OF CARE. Addendum: 05/19/20 at 2309 by BLANCA SMITH RN PLS. DISREGARD ABOVE DOCUMENTATION, IT BELONGS TO ANOTHER PATIENT.
--- NOTE | 2020-05-20 00:12 | NUR ---
MS/TELE/RN PATIENT IS SLEEPING, APPEAR COMFORTABLE, NO SIGNS OF DISTRESS NOTED, CALL LIGHT IN REACH, WILL CONTINUE TO MONITOR.
[2020-05-20] MEDS: GABAPENTIN 300 MG CAPSULE PO SCH (05:00)
--- NOTE | 2020-05-20 05:13 | NUR ---
MS/TELE/RN GURGLING SOUND NOTED, SUCTIONED ORALLY AND NASALLY, BLOOD TINGED SECRETIONS SUCTIONED OUT. ORAL CARE DONE, LIP BALM APPLIED TO LIPS. MORNING CARE DONE, TOTAL LINEN CHANGED RENDERED, REPOSITIONED TO COMFORT. PATIENT IS MOANING, RESTLESS, APPEARS IN PAIN, WILL MEDICATE.
[2020-05-20] MEDS: HYDROMORPHONE INJ 2 MG/ML DISP.SYRIN IV PRN (05:22)
[2020-05-20] MEDS: IV NS 0.9% 1,000 ML IV PRN (05:53)
--- NOTE | 2020-05-20 06:00 | NUR ---
MS/TELE/ PATIENT IS HAVING KRISTIN STOKE BREATHING, O2 SAT BETWEEN 63-65%, HR 43-45, CALLED AND SPOKE TO BERONICA, , INFORMED HER OF THE WORSENING CONDITION OF THE PATIENT, PER SHE WILL COME.
--- NOTE | 2020-05-20 06:17 | NUR ---
MS/TELE/RN PATIENT IS STILL SLEEPING, APPEAR COMFORTABLE, NO DISTRESS NOTED, CALL LIGHT IN REACH. ALL NEEDS ATTENDED AT THIS TIME, WILL CONTINUE TO MONITOR. Addendum: 05/20/20 at 0619 by BLANCA SMITH RN PLS. DISREGARD ABOVE DOCUMENTATION, IT BELONGS TO ANOTHER PATIENT.
--- NOTE | 2020-05-20 06:20 | NUR ---
MS/TELE/RN PATIENT APPEAR NOT BREATHING, NO PULSE, NO O2 SAT NOTED, HAND BRUSH FILLER ASSESSED THE PATIENT, SAME FINDINGS, NO BREATHING, NO PULSE, NO BP, NO O2 SAT NOTED. PRONOUNCED BY HAND BRUSH FILLER AT 0620. WILL CALL
--- NOTE | 2020-05-20 07:09 | NUR ---
MS/TELE/RN NOTIFIED AT 0627, BERONICA, NOTIFIED AT 0630, [facility] NOTIFIED AT 0650, CASE # [id number], SPOKE TO ESTEFANÍA. FAMILY HERE, PATIENT ENDORSED TO JANELLE RUIZ.
--- NOTE | 2020-05-20 07:36 | NUR ---
MS/RN - Notes Spoke with [facility] [phone], pick time at 08:15. Family at bedside made aware. All personal belongings given to the .
--- NOTE | 2020-05-20 07:45 | NUR ---
MS/RN - Notes Post mortem care rendered, bag, toe and wrist tags attached.
--- NOTE | 2020-05-20 09:03 | NUR ---
MS/RN - Notes Remain released to [facility] sales representative jewelry Adrian at 09:00. Isha aware.
== END 2020-05-20 09:15 | disposition expired | DRG 871 ==
LOC: ER 13:22 → ICU 17:58 → TELE 05-18 23:17 → MED 05-19 11:04
PROVIDERS: ADMIT Internal Medicine; ATTEND Internal Medicine
PROC: 30233R1 Transfusion of Nonautologous Platelets into Peripheral Vein, Percutaneous Approach (ICD-10-PCS; principal; 2020-05-12)
PROC: 30233N1 Transfusion of Nonautologous Red Blood Cells into Peripheral Vein, Percutaneous Approach (ICD-10-PCS; 2020-05-16)
DX: A41.9 Sepsis, unspecified organism (principal); I21.A1 Myocardial infarction type 2; K72.00 Acute and subacute hepatic failure without coma; J18.9 Pneumonia, unspecified organism; R65.21 Severe sepsis with septic shock; N17.0 Acute kidney failure with tubular necrosis; E43 Unspecified severe protein-calorie malnutrition; J96.92 Respiratory failure, unspecified with hypercapnia; G92 Toxic encephalopathy; D61.818 Other pancytopenia; E87.1 Hypo-osmolality and hyponatremia; C78.00 Secondary malignant neoplasm of unspecified lung; F11.20 Opioid dependence, uncomplicated; R64 Cachexia; Z66 Do not resuscitate; Z51.5 Encounter for palliative care; Z85.528 Personal history of other malignant neoplasm of kidney; Z87.442 Personal history of urinary calculi; Z86.711 Personal history of pulmonary embolism; Z79.01 Long term (current) use of anticoagulants; Z85.72 Personal history of non-Hodgkin lymphomas; Z90.5 Acquired absence of kidney; Z86.718 Personal history of other venous thrombosis and embolism; Z98.890 Other specified postprocedural states; Z91.041 Radiographic dye allergy status; Z79.899 Other long term (current) drug therapy; E86.1 Hypovolemia; D64.81 Anemia due to antineoplastic chemotherapy; G89.4 Chronic pain syndrome; F41.9 Anxiety disorder, unspecified; G89.3 Neoplasm related pain (acute) (chronic); K06.8 Other specified disorders of gingiva and edentulous alveolar ridge; I25.2 Old myocardial infarction
CPT/HCPCS: 36415; 36600; 71045-TC; 71250-TC; 80048-TC; 80076-TC; 80202-TC; 81000-TC; 82533; 82784; 82803-TC; 83010; 83605-TC; 83615-TC; 83735-TC; 84100-TC; 84155; 84165; 84484-TC; 85025-TC; 85027-TC; 85045-TC; 85385-TC; 85396; 85730-TC; 86334; 86706; 86803; 86850-TC; 87040-TC; 87081-TC; 87086-TC; 87186-TC; 87340; 93970-TC; 94799-TC; G0378; J0696; J1170; J1200; J1720; J2060; J2185; J2405; J3370; J3480; J7030; J7050; J7060; J7070; J7517; P9016-BL; P9034-BL; U0003